=== PATIENT | male | born 1945 | race Caucasian/White ===

== ENCOUNTER 2017-07-09 15:22 | Observation (INO) | payer OTHER ==
[~2017-07-09] VITALS: Ht 193 cm; Wt 108.2 kg
[2017-07-09 15:30] VITALS: BP 138/87; PULSE 132; RESP 20; TEMP 98.3; O2SAT 100
[2017-07-09] MEDS ORDERED: NITROGLYCERIN 2% OINT 1 GM PACKET TOP ONE (15:30)
[2017-07-09] MEDS ORDERED: MORPHINE SULFATE 4 MG/ML INJ IV PUSH ONE (15:30)
--- NOTE | 2017-07-09 15:42 | PD ---
HPI Chief Complaint: chest pain, SOB Time Seen by Provider: 15:30 Travel History International Travel<30 days: No Contact w/Intl Traveler<30days: No History of Present Illness HPI 72-year-old male presents emergency department from [place] [facility] for evaluation of shortness of breath, chest pain, cough, congestion that started approximately 3 days ago. EVAC states that they gave him 324 of aspirin, one of nitro and his chest pain shortness of breath decreased. Says they found intrafibrillation with RVR which apparently is new onset for him. Says his CO2 is been in the 20-30 range. Patient denies any cardiac history. States that he does have a history of hyperlipidemia, COPD, schizophrenia. Says he used to smoke 3 packs of cigarettes per day but quit 6 years ago. Says she drinks about 4 alcoholic drinks per week. In addition, states he takes Valium daily. Says he takes 25 mg per day. He is concerned that he may go through Valium withdrawal. He says he took 10 mg a day. PFSH Past Medical History Arthritis: Yes Autoimmune Disease: No Blood Disorders: No Anxiety: Yes Depression: Yes Cancer: Yes (SKIN) Cardiovascular Problems: No Genitourinary: No Musculoskeletal: Yes Neurologic: No Psychiatric: Yes (SCHIZOPHRENIA) Respiratory: No Social History Alcohol Use: Yes (4-6 DAILY) Tobacco Use: Yes (2 PACKS DAILY) [facility]: [facility] Allergies-Medications (Allergen,Severity, Reaction): Coded Allergies: Sulfa (Sulfonamide Antibiotics) (Verified Allergy, Severe, Rash, 07/09/17) Physical Exam Narrative GENERAL: Well-developed, well-nourished, on BiPAP in respiratory distress SKIN: Focused skin assessment warm/dry. HEAD: Atraumatic. Normocephalic. EYES: Pupils equal and round. No scleral icterus. No injection or drainage. ENT: No nasal bleeding or discharge. Mucous membranes pink and moist. NECK: Trachea midline. JVD present CARDIOVASCULAR: Irregularly irregular, tachycardic RESPIRATORY: Accessory muscle use present, bilateral diffuse Rales GASTROINTESTINAL: Abdomen soft, non-tender, nondistended. Hepatic and splenic margins not palpable. No CVA tenderness MUSCULOSKELETAL: No obvious deformities. No clubbing. No cyanosis. No edema. Homans sign negative bilaterally NEUROLOGICAL: Awake and alert. No obvious cranial nerve deficits. Motor grossly within normal limits. Normal speech. PSYCHIATRIC: Appropriate mood and affect; insight and judgment normal. Data Data Last Documented VS Vital Signs Date Time Temp Pulse Resp B/P (MAP) Pulse Ox O2 Delivery O2 Flow Rate FiO2 07/09/17 18:15 84 18 164/76 (105) 97 Nasal Cannula 3.00 07/09/17 15:55 98.3 Orders Orders Electrocardiogram (07/09/17 15:29) Basic Metabolic Panel (Bmp) (07/09/17 15:29) Complete Blood Count With Diff (07/09/17 15:29) Magnesium (Mg) (07/09/17 15:29) Prothrombin Time / Inr (Pt) (07/09/17 15:29) Act Partial Throm Time (Ptt) (07/09/17 15:29) Troponin I (07/09/17 15:29) Chest, Single Ap (07/09/17 15:29) Ecg Monitoring (07/09/17 15:29) Iv Access Insert/Monitor (07/09/17 15:29) Oximetry (07/09/17 15:29) Oxygen Administration (07/09/17 15:29) Morphine Inj (Morphine Inj) (07/09/17 15:30) Nitroglycerin 2% Oint (Nitroglycerin 2% (07/09/17 15:30) Sodium Chloride 0.9% Flush (Ns Flush) (07/09/17 15:30) B-Type Natriuretic Peptide (07/09/17 15:34) Resp Bipap / Cpap Non Invas Vt (07/09/17 ) Diltiazem Inj (Cardizem Inj) (07/09/17 16:00) Admit Order (Ed Use Only) (07/09/17 18:24) Labs Laboratory Tests Test 07/09/17 15:30 07/09/17 16:03 White Blood Count 11.0 TH/MM3 Red Blood Count 4.71 MIL/MM3 Hemoglobin 15.0 GM/DL Hematocrit 43.3 % Mean Corpuscular Volume 92.1 FL Mean Corpuscular Hemoglobin 31.9 PG Mean Corpuscular Hemoglobin Concent 34.6 % Red Cell Distribution Width 13.9 % Platelet Count 151 TH/MM3 Mean Platelet Volume 9.3 FL Neutrophils (%) (Auto) 71.5 % Lymphocytes (%) (Auto) 14.2 % Monocytes (%) (Auto) 13.8 % Eosinophils (%) (Auto) 0.0 % Basophils (%) (Auto) 0.5 % Neutrophils # (Auto) 7.9 TH/MM3 Lymphocytes # (Auto) 1.6 TH/MM3 Monocytes # (Auto) 1.5 TH/MM3 Eosinophils # (Auto) 0.0 TH/MM3 Basophils # (Auto) 0.1 TH/MM3 CBC Comment DIFF FINAL Differential Comment Prothrombin Time 9.5 SEC Prothromb Time International Ratio 0.9 RATIO Activated Partial Thromboplast Time 24.8 SEC D-Dimer Quantitative (PE/DVT) 1.01 MG/L FEU Blood Urea Nitrogen 23 MG/DL Creatinine 1.07 MG/DL Random Glucose 117 MG/DL Calcium Level 8.8 MG/DL Magnesium Level 2.2 MG/DL Sodium Level 134 MEQ/L Potassium Level 3.9 MEQ/L Chloride Level 98 MEQ/L Carbon Dioxide Level 27.5 MEQ/L Anion Gap 9 MEQ/L Estimat Glomerular Filtration Rate 68 ML/MIN Troponin I 0.02 NG/ML B-Type Natriuretic Peptide 51 PG/ML MDM Medical Decision Making Medical Screen Exam Complete: Yes Emergency Medical Condition: Yes Differential Diagnosis CHF, NSTEMI, A fib with RVR Narrative Course 72-year-old male with history of hyperlipidemia, COPD [facility]. Patient was given aspirin and nitro, also placed on BiPAP by [facility] prior to arrival which significantly reduced his symptoms. Patient complains of minimal chest discomfort at this point. Says that his chest discomfort is located midsternal with some radiation into the left shoulder. Pt was transferred to his hospital bed on BiPAP. Initial vital signs blood pressure 164/76, heart rate 132-172, 97% on BiPAP (50 % O2) Labs and imaging studies ordered. EKG shows atrial fibrillation with RVR at a rate of 150 which apparently is a new onset for him. His exam findings demonstrate a 72-year-old male in respiratory distress, diffuse Rales, irregularly irregular rhythm and tachycardic. Morphine and nitro administered as this appears to be a congestive heart failure exacerbation. Cardizem 0.25 mg/kg of ordered as his heart rate is significantly variable between 120 and 153 bpm. After speaking with the pharmacist, because of the dosing of the vials, ordered 25 mg IV push. This decreased his HR to 95-100. Pt also felt better. Labs are stable. Cardiac enzymes negative. Mild hyponatremia at 134, BNP 51. CBC unremarkable. Chest x-ray without acute process. Patient states he is willing to have life support for a brief amount of time although his paperwork (advanced directive) says otherwise. Patient states that he "did not know what he was signing". Says his intent was to donate his body to medical science which is the reason why he is signed what he did at the time. BiPAP was weaned and he was placed on 2 L/min O2 and tolerated well. Patient is admitted to Dr. Jain for new onset atrial fibrillation with RVR. Diagnosis Primary Impression: Atrial fibrillation with RVR Admitting Information Admitting Physician Requests: Admit Condition: Stable Florida Mckeon Jul 09, 2017 15:42
[2017-07-09] MEDS ORDERED: DILTIAZEM HCL 25 MG/5 ML VIAL IV PUSH ONE (15:45)
[2017-07-09 15:54] VITALS: O2SAT 96
[2017-07-09 15:55] VITALS: BP 138/87; PULSE 132; RESP 20; TEMP 98.3; O2SAT 100
[2017-07-09] MEDS ORDERED: DILTIAZEM HCL 50 MG/10 ML VIAL IV PUSH ONE (16:00)
[2017-07-09] MEDS: SODIUM CHLORIDE 0.9% FLUSH 10 ML FLUSH IVF PRN ×2 (16:03→16:14)
--- NOTE | 2017-07-09 16:03 | PD ---
Physical Exam Date Seen by Provider: Jul 09, 2017 Narrative This patient presents to us from the [facility] by [facility] on BiPAP for new onset atrial fibrillation, chest pain and shortness of breath. He has been treated prior to arrival here with aspirin and nitroglycerin with some relief of his chest pain. His dyspnea has been relieved by the BiPAP. He has no previous history of atrial fibrillation. Data Data Last Documented VS Vital Signs Date Time Temp Pulse Resp B/P (MAP) Pulse Ox O2 Delivery O2 Flow Rate FiO2 07/09/17 18:15 84 18 164/76 (105) 97 Nasal Cannula 3.00 07/09/17 15:55 98.3 07/09/17 15:54 50 Orders Orders Electrocardiogram (07/09/17 15:29) Basic Metabolic Panel (Bmp) (07/09/17 15:29) Complete Blood Count With Diff (07/09/17 15:29) Magnesium (Mg) (07/09/17 15:29) Prothrombin Time / Inr (Pt) (07/09/17 15:29) Act Partial Throm Time (Ptt) (07/09/17 15:29) Troponin I (07/09/17 15:29) Chest, Single Ap (07/09/17 15:29) Ecg Monitoring (07/09/17 15:29) Iv Access Insert/Monitor (07/09/17 15:29) Oximetry (07/09/17 15:29) Oxygen Administration (07/09/17 15:29) Morphine Inj (Morphine Inj) (07/09/17 15:30) Nitroglycerin 2% Oint (Nitroglycerin 2% (07/09/17 15:30) Sodium Chloride 0.9% Flush (Ns Flush) (07/09/17 15:30) B-Type Natriuretic Peptide (07/09/17 15:34) Resp Bipap / Cpap Non Invas Vt (07/09/17 ) Diltiazem Inj (Cardizem Inj) (07/09/17 16:00) Admit Order (Ed Use Only) (07/09/17 18:24) Labs Laboratory Tests Test 07/09/17 15:30 07/09/17 16:03 White Blood Count 11.0 TH/MM3 Red Blood Count 4.71 MIL/MM3 Hemoglobin 15.0 GM/DL Hematocrit 43.3 % Mean Corpuscular Volume 92.1 FL Mean Corpuscular Hemoglobin 31.9 PG Mean Corpuscular Hemoglobin Concent 34.6 % Red Cell Distribution Width 13.9 % Platelet Count 151 TH/MM3 Mean Platelet Volume 9.3 FL Neutrophils (%) (Auto) 71.5 % Lymphocytes (%) (Auto) 14.2 % Monocytes (%) (Auto) 13.8 % Eosinophils (%) (Auto) 0.0 % Basophils (%) (Auto) 0.5 % Neutrophils # (Auto) 7.9 TH/MM3 Lymphocytes # (Auto) 1.6 TH/MM3 Monocytes # (Auto) 1.5 TH/MM3 Eosinophils # (Auto) 0.0 TH/MM3 Basophils # (Auto) 0.1 TH/MM3 CBC Comment DIFF FINAL Differential Comment Prothrombin Time 9.5 SEC Prothromb Time International Ratio 0.9 RATIO Activated Partial Thromboplast Time 24.8 SEC D-Dimer Quantitative (PE/DVT) 1.01 MG/L FEU Blood Urea Nitrogen 23 MG/DL Creatinine 1.07 MG/DL Random Glucose 117 MG/DL Calcium Level 8.8 MG/DL Magnesium Level 2.2 MG/DL Sodium Level 134 MEQ/L Potassium Level 3.9 MEQ/L Chloride Level 98 MEQ/L Carbon Dioxide Level 27.5 MEQ/L Anion Gap 9 MEQ/L Estimat Glomerular Filtration Rate 68 ML/MIN Troponin I 0.02 NG/ML B-Type Natriuretic Peptide 51 PG/ML MDM Supervised Visit with [facility]: Yes Narrative Course I, Dr. Montoya, have reviewed the advance practice practitioner's documentation and am in agreement, met with the patient face to face, made the diagnosis, and the medical decision making was done by me. *My assessment and Findings: Patient is awake and alert and fully oriented. He has a heart rate of about 140. Please see Florida Mckeon PA-C's note for further details, lab and radiology results, final diagnosis and disposition. Critical Care Narrative Aggregate critical care time was 30 minutes. Time to perform other separately billable procedures was not included in the critical care time. My time did not include minutes spent treating any other patients simultaneously or on activities that did not directly contribute to the patient's treatment. The services I provided to this patient were to treat and/or prevent clinically significant deterioration due to new-onset atrial fibrillation with rapid ventricular response. I provided critical care services requiring my management, as noted below: Chart data review, documentation time, medication orders and management, vital sign assessments/reviewing monitor data, ordering and reviewing lab tests, ordering and interpreting/reviewing x-rays and diagnostic studies, care of the patient and discussion of the patient with the admitting physicians Diagnosis Primary Impression: Atrial fibrillation with RVR Condition: Stable Rianna Montoya MD Jul 09, 2017 16:03
--- NOTE | 2017-07-09 16:11 | RADRPT ---
EXAM DATE/TIME: 07/09/2017 15:43 [facility] COMPARISON: No previous studies available for comparison. INDICATIONS : Shortness of breath. MEDICAL HISTORY : Skin cancer. Schizophrenia. SURGICAL HISTORY : None. ENCOUNTER: Initial ACUITY: 1 day PAIN SCORE: 0/10 LOCATION: Bilateral chest FINDINGS: 2 AP erect portable views of the chest demonstrates the lungs to be symmetrically aerated without nata dence of mass, infiltrate or effusion. The cardiomediastinal contours are unremarkable. Osseous str uctures are intact. CONCLUSION: No acute disease. There is no evidence of pneumonia or pulmonary edema. Maik Cheung MD on July 09, 2017 at 16:08 Board Certified Radiologist. This report was verified electronically.
[2017-07-09 16:15] LABS: AUTOMATED NEUTROPHIL # 7.9 TH/MM3 (1.8-7.7); BASOPHIL # 0.1 TH/MM3 (0-0.2); BASOPHIL % 0.5 % (0.0-2.0); HEMATOCRIT 43.3 % (39.0-51.0); LYMPH % 14.2 % (9.0-44.0); LYMPHOCYTE # 1.6 TH/MM3 (1.0-4.8); MEAN CELL VOLUME 92.1 FL (80.0-100.0); MEAN CORPUSCULAR HEMOGLOBIN 31.9 PG (27.0-34.0); MEAN CORPUSCULAR HGB CONC 34.6 % (32.0-36.0); MEAN PLATELET VOLUME 9.3 FL (7.0-11.0); MONO % 13.8 % (0.0-8.0); MONOCYTE # 1.5 TH/MM3 (0-0.9); NEUT % 71.5 % (16.0-70.0); PLATELET COUNT 151 TH/MM3 (150-450); RED BLOOD COUNT 4.71 MIL/MM3 (4.50-5.90); RED CELL DISTRIBUTION WIDTH 13.9 % (11.6-17.2)
[2017-07-09 16:35] VITALS: BP 134/84; PULSE 97; RESP 16
[2017-07-09 16:43] LABS: INTERNATIONAL NORMALIZED RATIO 0.9 RATIO; PROTHROMBIN TIME - PATIENT 9.5 SEC (9.8-11.6)
[2017-07-09 16:45] LABS: TROPONIN I 0.02 NG/ML (0.02-0.05)
[2017-07-09 16:51] LABS: BICARBONATE 27.5 MEQ/L (21.0-32.0); CALCIUM 8.8 MG/DL (8.5-10.1); CREATININE 1.07 MG/DL (0.60-1.30); MAGNESIUM 2.2 MG/DL (1.5-2.5)
[2017-07-09 18:15] VITALS: BP 164/76; PULSE 84; RESP 18; O2SAT 97
[2017-07-09] MEDS ORDERED: NALOXONE HCL 0.4 MG/ML AMP IV PUSH PRN (18:30)
[2017-07-09] MEDS ORDERED: SODIUM CHLORIDE 0.9% FLUSH 10 ML FLUSH IV FLUSH PRN (18:30)
[2017-07-09] MEDS: SODIUM CHLORIDE 0.9% FLUSH 10 ML FLUSH IV FLUSH SCH (21:02)
--- NOTE | 2017-07-09 21:02 | HHI.HP ---
[facility] Admission Diagnosis A fib with RVR, Chest pain, SOB Diagnoses: Travel History International Travel<30 Days: No Contact w/Intl Traveler <30 Da: No Traveled to Known Affected Are: No History of Present Illness History from patient, ER PA communication, and review of medical records. Patient reported that he was having sciatica symptoms about 2 weekends ago. He states that on and Sunday, about 4 days ago, he started having "pulmonary issues". When asked to clarify this, he reports that he was having coughing, severe congestion, with some chills and sweats. He denies fever there. He reports that his sputum is whitish thick color. He reports history of COPD. However he is not on inhalers at home yet. Not on home oxygen. He reports that his shortness of breath was not improving and therefore called the [place] and had an appointment with them today. At the [place] clinic, he did have a chest x-ray done. He was then sent to the hospital via ambulance because of his respiratory distress. He arrived to the emergency room on CPAP by EMS. Patient himself denies any nausea/vomiting. He reports of some abdominal pain but states that this is resolved now. He noted the abdominal pain only when he was taking ibuprofen. Denies any urinary symptoms except for frequent urination. Denies diarrhea. Denies any nausea, no vomiting Denies blood in his stool or urine. When asked about the chest pains, patient stated it was more of his pectoral muscle pain on the left side and also in between his shoulder blades. He however states that the head chest pain is more of a heaviness as well. Patient denies any recent travels. Reports he is mostly sitting at home though. Because of his disability. Reports that his disability is secondary to mental health though. Patient during my interview is noted to be with obvious upper airway congestion with heavy audible cough and congestion Review of Systems Except as stated in HPI: all other systems reviewed are Neg Past Family Social History Past Medical History had nuclear stress test prior- about 6-7 yrs ago, wnl copd- not on home oxygen, not on inhalors basal cell carcinoma of the nose- s/p resections psychiatry issues- made him to be under disability- he did not want to discuss Past Surgical History basal cell skin removal tonsillectomy adenoidectomy Allergies: Coded Allergies: Sulfa (Sulfonamide Antibiotics) (Verified Allergy, Severe, Rash, 07/09/17) Family History mom- breast cancer dad- lung cancer daughter- in feb stage III cancer Social History used to smoke, quit 7 yrs ago etoh socially - drinks about 4 low beer a week no drugs Physical Exam Vital Signs Vital Signs Date Time Temp Pulse Resp B/P (MAP) Pulse Ox O2 Delivery O2 Flow Rate FiO2 07/09/17 18:15 84 18 164/76 (105) 97 Nasal Cannula 3.00 07/09/17 16:35 97 16 134/84 (101) CPAP 07/09/17 15:55 100 CPAP 07/09/17 15:55 98.3 132 20 138/87 (104) 100 CPAP 07/09/17 15:55 130 20 100 CPAP 07/09/17 15:30 98.3 132 20 138/87 (104) 100 Physical Exam GENERAL: This is a well-nourished, well-developed patient, i not in acute distress. However does have audible cough and congestion. SKIN: No rashes, ecchymoses or lesions. Cool and dry. HEAD: Atraumatic. Normocephalic. No temporal or scalp tenderness. EYES: No scleral icterus. No injection or drainage. ENT: Nose without bleeding, purulent drainage or septal hematoma. Airway patent. NECK: Trachea midline. No JVD . Supple, nontender, no meningeal signs. CARDIOVASCULAR: Regular rate and rhythm without murmurs, gallops, or rubs. RESPIRATORY: Bilateral inspiratory and expiratory wheezing. All throughout lungs. GASTROINTESTINAL: Abdomen soft, non-tender, nondistended.. No guarding. MUSCULOSKELETAL: Extremities without clubbing, cyanosis, or edema. . No calf tenderness. NEUROLOGICAL: Awake and alert. Motor and sensory grossly within normal limits. Normal speech. Laboratory Laboratory Tests Test 07/09/17 15:30 07/09/17 16:03 White Blood Count 11.0 Red Blood Count 4.71 Hemoglobin 15.0 Hematocrit 43.3 Mean Corpuscular Volume 92.1 Mean Corpuscular Hemoglobin 31.9 Mean Corpuscular Hemoglobin Concent 34.6 Red Cell Distribution Width 13.9 Platelet Count 151 Mean Platelet Volume 9.3 Neutrophils (%) (Auto) 71.5 Lymphocytes (%) (Auto) 14.2 Monocytes (%) (Auto) 13.8 Eosinophils (%) (Auto) 0.0 Basophils (%) (Auto) 0.5 Neutrophils # (Auto) 7.9 Lymphocytes # (Auto) 1.6 Monocytes # (Auto) 1.5 Eosinophils # (Auto) 0.0 Basophils # (Auto) 0.1 CBC Comment DIFF FINAL Differential Comment Prothrombin Time 9.5 Prothromb Time International Ratio 0.9 Activated Partial Thromboplast Time 24.8 D-Dimer Quantitative (PE/DVT) 1.01 Blood Urea Nitrogen 23 Creatinine 1.07 Random Glucose 117 Calcium Level 8.8 Magnesium Level 2.2 Sodium Level 134 Potassium Level 3.9 Chloride Level 98 Carbon Dioxide Level 27.5 Anion Gap 9 Estimat Glomerular Filtration Rate 68 Troponin I 0.02 B-Type Natriuretic Peptide 51 Result Diagram: 07/09/17 1530 07/09/17 1530 Caprini VTE Risk Assessment Caprini VTE Risk Assessment: Mod/High Risk (score >= 2) Caprini Risk Assessment Model Point Value = 1 Point Value = 2 Point Value = 3 Point Value = 5 Age 41-60 Minor surgery BMI > 25 kg/m2 Swollen legs Varicose veins or History of unexplained or recurrent spontaneous Oral contraceptives or hormone replacement Sepsis (< 1 month) Serious lung disease, including pneumonia (< 1 month) Abnormal pulmonary function Acute myocardial infarction Congestive heart failure (< 1 month) History of inflammatory bowel disease Medical patient at bed rest Age 61-74 Arthroscopic surgery Major open surgery (> 45 min) Laparoscopic surgery (> 45 min) Malignancy Confined to bed (> 72 hours) Immobilizing plaster cast Central venous access Age >= 75 History of VTE Family history of VTE Factor V Leiden Prothrombin [id number] Lupus anticoagulant Anticardiolipin antibodies Elevated serum homocysteine Heparin-induced thrombocytopenia Other congenital or acquired thrombophilia Stroke (< 1 month) Elective arthroplasty Hip, pelvis, or leg fracture Acute spinal cord injury (< 1 month) Prophylaxis Regimen Total Risk Factor Score Risk Level Prophylaxis Regimen 0-1 Low Early ambulation 2 Moderate Order ONE of the following: *Sequential Compression Device (SCD) *Heparin 5000 units SQ BID 3-4 Higher Order ONE of the following medications: *Heparin 5000 units SQ TID *Enoxaparin/Lovenox 40 mg SQ daily (WT < 150 kg, CrCl > 30 mL/min) *Enoxaparin/Lovenox 30 mg SQ daily (WT < 150 kg, CrCl > 10-29 mL/min) *Enoxaparin/Lovenox 30 mg SQ BID (WT < 150 kg, CrCl > 30 mL/min) AND/OR *Sequential Compression Device (SCD) 5 or more Highest Order ONE of the following medications: *Heparin 5000 units SQ TID (Preferred with Epidurals) *Enoxaparin/Lovenox 40 mg SQ daily (WT < 150 kg, CrCl > 30 mL/min) *Enoxaparin/Lovenox 30 mg SQ daily (WT < 150 kg, CrCl > 10-29 mL/min) *Enoxaparin/Lovenox 30 mg SQ BID (WT < 150 kg, CrCl > 30 mL/min) AND *Sequential Compression Device (SCD) Assessment and Plan Assessment and Plan Impression: Respiratory distress Suspect underlying early pneumonia Rule out pulmonary embolism given patient's limited mobility. Chest pain.. Rule out ACS. Urinary frequency. Rule out underlying UTI History of COPD History of basal cell carcinoma of the nose Plan: Nebulizers scheduled and as needed. Check d-dimer. If d-dimer is elevated, will do CT pulmonary angiogram. Serial cardiac enzymes and EKGs. Chest x-ray personally reviewed. No evidence of acute pulmonary edema/ infiltrate. Does have hyperinflated lungs consistent with COPD. Question whether there is bronchiectasis as well. We will send UA urine culture due to urinary frequency. Start patient on levofloxacin 750 mg p.o. daily to cover for both pneumonia/UTI. DVT prophylaxis on Lovenox. GI prophylaxis on pantoprazole. Discussed Condition With Patient, ER PA, nursing staff Radha Jain MD Jul 09, 2017 21:02
[2017-07-09] MEDS ORDERED: IOHEXOL 350 MG/ML 10 ML VIAL (for RAD DIAG) IVCONTRAST ONE (21:19)
[2017-07-09] MEDS ORDERED: LEVOFLOXACIN 750 MG TAB PO ONE (21:30)
--- NOTE | 2017-07-09 21:38 | RADRPT ---
EXAM DATE/TIME: 07/09/2017 21:16 [facility] COMPARISON: No previous studies available for comparison. INDICATIONS : Shortness of breath past 3 days. IV CONTRAST: 70 cc Omnipaque 350 (iohexol) IV RADIATION DOSE: 18.10 CTDIvol (mGy) MEDICAL HISTORY : None SURGICAL HISTORY : None. ENCOUNTER: Initial ACUITY: 3 days PAIN SCALE: 0/10 LOCATION: Bilateral chest TECHNIQUE: Volumetric scanning of the chest was performed using a pulmonary embolism protocol MIP images were re constructed. Using automated exposure control and adjustment of the mA and/or kV according to patien t size, radiation dose was kept as low as reasonably achievable to obtain optimal diagnostic quality images. DICOM format image data is available electronically for review and comparison. Follow-up recommendations for detected pulmonary nodules are based at a minimum on nodule size and pa tient risk factors according to Fleischner Society Guidelines. FINDINGS: No filling defects identified to suggest pulmonary embolus. There is fairly extensive peribronchial t hickening in the lungs without consolidation. No effusion. No adenopathy. No acute findings in the up per abdomen. CONCLUSION: 1. Extensive peribronchial thickening in the lungs especially in the upper lobes. Negative for pulmon wisam embolus. Juan Guerrero MD on July 09, 2017 at 21:34 Board Certified Radiologist. This report was verified electronically.
[2017-07-09] MEDS: RESP: ALBUTEROL 2.5 MG/IPRATROPIUM 0.5 MG NEB (SCH) NEB (21:56)
[2017-07-09 22:26] VITALS: BP 129/80; PULSE 109; RESP 16; TEMP 98.5; O2SAT 97
[2017-07-09 22:48] LABS: TROPONIN I LESS THAN 0.02 NG/ML (0.02-0.05)
[2017-07-10] VITALS (15 sets, daily range): BP systolic 120–158; BP diastolic 56–92; PULSE 81–105; RESP 14–18; TEMP 97.6–98.8; O2SAT 94–97
[2017-07-10] MEDS: methylPREDNISolone SOD SUCC 40 MG/1 ML VIAL IV PUSH SCH ×4 (00:14→21:59)
[2017-07-10] MEDS: RESP: ALBUTEROL 2.5 MG/IPRATROPIUM 0.5 MG NEB (PRN) NEB ×2 (00:17→12:47)
[2017-07-10] MEDS: RESP: ALBUTEROL 2.5 MG/IPRATROPIUM 0.5 MG NEB (SCH) NEB ×4 (03:23→20:26)
[2017-07-10 04:57] LABS: AUTOMATED NEUTROPHIL # 4.2 TH/MM3 (1.8-7.7); BASOPHIL % 0.2 % (0.0-2.0); HEMATOCRIT 40.4 % (39.0-51.0); HEMOGLOBIN 13.9 GM/DL (13.0-17.0); LYMPH % 7.8 % (9.0-44.0); LYMPHOCYTE # 0.4 TH/MM3 (1.0-4.8); MEAN CELL VOLUME 91.9 FL (80.0-100.0); MEAN CORPUSCULAR HEMOGLOBIN 31.6 PG (27.0-34.0); MEAN CORPUSCULAR HGB CONC 34.4 % (32.0-36.0); MEAN PLATELET VOLUME 8.9 FL (7.0-11.0); MONO % 4.6 % (0.0-8.0); MONOCYTE # 0.2 TH/MM3 (0-0.9); NEUT % 87.4 % (16.0-70.0); PLATELET COUNT 134 TH/MM3 (150-450); RED CELL DISTRIBUTION WIDTH 13.4 % (11.6-17.2); WHITE BLOOD COUNT 4.8 TH/MM3 (4.0-11.0)
[2017-07-10 05:25] LABS: BICARBONATE 28.1 MEQ/L (21.0-32.0); BLOOD UREA NITROGEN 23 MG/DL (7-18); CALCIUM 8.5 MG/DL (8.5-10.1); CHLORIDE 99 MEQ/L (98-107); CREATININE 0.85 MG/DL (0.60-1.30); GLOMERULAR FILTRATION RATE 89 ML/MIN (>89); GLUCOSE,RANDOM 139 MG/DL (74-106); SODIUM (NA) 137 MEQ/L (136-145)
[2017-07-10 05:29] LABS: TROPONIN I LESS THAN 0.02 NG/ML (0.02-0.05)
[2017-07-10] MEDS: LEVOFLOXACIN 750 MG TAB PO SCH (08:27)
[2017-07-10] MEDS: PANTOPRAZOLE SOD 40 MG DELAYED RELEASE TAB PO SCH (08:27)
[2017-07-10] MEDS: ENOXAPARIN SODIUM 40 MG/0.4 ML SYRINGE SQ SCH (08:27)
[2017-07-10] MEDS: SODIUM CHLORIDE 0.9% FLUSH 10 ML FLUSH IV FLUSH SCH ×2 (08:34→21:00)
--- NOTE | 2017-07-10 10:33 | HHI.PR ---
Subjective Remarks Patient says he is feeling all right this morning, still shortness of breath. However left-sided chest pressure started 30 minutes prior to my arrival. Denies any nausea vomiting. Objective Vital Signs Date Time Temp Pulse Resp B/P (MAP) Pulse Ox O2 Delivery O2 Flow Rate FiO2 07/10/17 07:29 97.6 92 18 158/88 (111) 96 07/10/17 04:17 87 07/10/17 04:01 98.8 98 18 125/61 (82) 96 07/10/17 01:16 104 07/10/17 00:54 98.1 92 17 120/88 (99) 96 07/10/17 00:15 96 Nasal Cannula 2.00 07/09/17 22:26 98.5 109 16 129/80 (96) 97 07/09/17 18:15 84 18 164/76 (105) 97 Nasal Cannula 3.00 07/09/17 18:15 97 Nasal Cannula 3.00 07/09/17 16:35 97 16 134/84 (101) CPAP 07/09/17 15:55 100 CPAP 07/09/17 15:55 98.3 132 20 138/87 (104) 100 CPAP 07/09/17 15:55 130 20 100 CPAP 07/09/17 15:54 96 50 07/09/17 15:30 98.3 132 20 138/87 (104) 100 Result Diagram: 07/10/17 0443 07/10/17 0443 Objective Remarks GENERAL: Patient sitting up in bed. Appears uncomfortable. Alert and oriented 3.. SKIN: Warm and dry. HEAD: Normocephalic. EYES: No scleral icterus. No injection or drainage. NECK: Supple, trachea midline. No JVD. CARDIOVASCULAR: Irregularly irregular rhythm without murmurs, gallops, or rubs. RESPIRATORY: Breath sounds equal bilaterally. No accessory muscle use. GASTROINTESTINAL: Abdomen soft, non-tender, nondistended. MUSCULOSKELETAL: No cyanosis, or edema. BACK: Nontender without obvious deformity. No CVA tenderness. A/P Assessment and Plan //Respiratory distress //Bronchitis //COPD exacerbation CT pulmonary angiogram without evidence for PE, however shows peribronchial thickening. Continue Levaquin, nebs, steroids //New atrial fibrillation //Chest pain.. Rule out ACS. -Could be secondary to coughing. -Troponin 0 0.02 on admission, less than 0.[address] elevation on EKG. = Patient reporting chest pain restarted this morning. Cardiology consult pending. Recheck EKG. //Urinary frequency. Rule out underlying UTI. Urinalysis ordered and pending. //History of basal cell carcinoma of the nose Discharge Planning Pending improvement. Pending cardiology clearance. Luis Perdomo MD Jul 10, 2017 10:33
[2017-07-10] MEDS: DILTIAZEM-CD 120 MG CAP ER PO SCH (10:38)
[2017-07-10] MEDS ORDERED: DIAZ10 PO (11:00)
[2017-07-10 12:30] LABS: GLUCOSE,URINE NEG (NEG); URINE COLOR YELLOW (YELLW/STRAW)
[2017-07-10 12:31] LABS: BILIRUBIN, URINE NEG (NEG); BLOOD, URINE SMALL (NEG); HYALINE CAST, URINE 1 /lpf (RARE); KETONE, URINE TRACE mg/dL (NEG); NITRITE,URINE NEG (NEG); SQUAMOUS EPITHELIAL CELL URINE <1 /hpf (0-5); URINE LEUKOCYTE ESTERASE NEG (NEG)
--- NOTE | 2017-07-10 14:30 | EKG ---
Date Performed: 07/09/2017 Time Performed: 15:32:51 PTAGE: 72 years EKG: ATRIAL FIBRILLATION WITH RAPID VENTRICULAR RESPONSE ABNORMAL RHYTHM ECG Compared to PREVIOUS TRACING atrial fibrillation is new Clinical correlation is recommended PREVIOUS TRACIN02/15/05 DOCTOR: Mak Kamara Interpretating Date/Time 07/10/2017 14:29:40
--- NOTE | 2017-07-10 15:47 | EKG ---
Date Performed: 07/09/2017 Time Performed: 22:08:15 PTAGE: 72 years EKG: ATRIAL FIBRILLATION WITH RAPID VENTRICULAR RESPONSE ABNORMAL RHYTHM ECG Since the PREVIOUS TRACING , no significant change noted PREVIOUS TRACIN07/09/2017@1532 DOCTOR: Mak Kamara Interpretating Date/Time 07/10/2017 15:43:23
[2017-07-10] MEDS ORDERED: atorvastatin (18:21)
[2017-07-10] MEDS ORDERED: zinc (18:24)
[2017-07-10] MEDS ORDERED: DIAZEPAM 5 MG TAB PO ONE (18:30)
[2017-07-11] VITALS (12 sets, daily range): BP systolic 155–181; BP diastolic 82–96; PULSE 77–102; RESP 18–20; TEMP 97.3–97.8; O2SAT 91–94
--- NOTE | 2017-07-11 00:11 | MB ---
cc: Marcos Hanna MD DATE: 07/10/2017 HISTORY OF PRESENT ILLNESS: Gopi is a 72-year-old gentleman who presents with a chief complaint of shortness of breath, also notes a left-sided chest pain, complains of cough and congestion. [facility] He is currently eating lunch, in no acute distress. He otherwise denies any fevers or chills, GI or bleeding, PND or orthopnea. He was found to be in atrial fibrillation with rapid ventricular response at the [place]. PAST MEDICAL HISTORY: Includes hyperlipidemia, COPD, schizophrenia, tobacco use. Past medical history also includes arthritis and skin cancer. SOCIAL HISTORY: Alcohol, he drinks 4-6 drinks a day, and per the ER note, he smokes 2 packs of cigarettes a day and smokes marijuana. ALLERGIES: SULFA. MEDICATIONS: 1. Methylprednisolone 40 mg IV every 8 hours. 2. Cardizem 120 daily. 3. Levofloxacin 750 daily. 4. Pantoprazole 40 daily. 5. Lovenox 40 subQ every 24 hours. 6. Albuterol. PHYSICAL EXAMINATION: VITAL SIGNS: Pulse 102, blood pressure 154/94, respiratory rate 14, sats 94% on 3 liters. DIAGNOSTIC STUDIES: EKG: Atrial fibrillation with a rate of 150 beats per minute. CTA of the chest: Extensive peribronchial thickening in the lungs, especially in the upper lobes; negative for pulmonary embolus. Chest x-ray: No acute disease. LABORATORY DATA: White count 4.8, hemoglobin 13.9, hematocrit 40.4, platelet count 134. Sodium 134, potassium 3.9, chloride 98, BUN 23, creatinine 1.07. Troponin less than 0.02 x3. BNP is 51. INR is 1.01. FINAL DIAGNOSES: 1. Atrial fibrillation with rapid ventricular response. 2. Unstable angina. 3. Tobacco use. 4. Marijuana use. 5. Alcohol abuse. 6. Hyponatremia. 7. Hyperglycemia. 8. Schizophrenia. DISCUSSION: Regarding his atrial fibrillation, he has a CHADS-VASc score of 2. Therefore, he should be on Coumadin or a novel oral anticoagulant agent to reduce his risk of stroke; however, the patient has schizophrenia, he is an alcohol abuser, and he would be a fall risk and also a risk of noncompliance, which may result in life-threatening bleeding. Therefore, I think it is reasonable to keep him on aspirin 81 mg daily. I have also recommended a heart catheterization to the patient, as he has a high pretest probability for significant coronary artery disease given his smoking history, age and gender. The patient declines. We will consider doing a nuclear myocardial perfusion study. Strongly recommend smoking cessation and alcohol abstinence and marijuana abstinence, and advised the patient to do this. Otherwise, recommend continued telemetry monitoring and up-titrate Cardizem p.r.n. to keep heart rate below 100. MD TOMÁS Isaacs/DONATO , 11:30 PM , 12:09 AM
[2017-07-11] MEDS: RESP: ALBUTEROL 2.5 MG/IPRATROPIUM 0.5 MG NEB (SCH) NEB ×4 (03:21→21:00)
[2017-07-11] MEDS: methylPREDNISolone SOD SUCC 40 MG/1 ML VIAL IV PUSH SCH ×3 (05:22→21:06)
[2017-07-11] MEDS: ENOXAPARIN SODIUM 40 MG/0.4 ML SYRINGE SQ SCH (08:56)
[2017-07-11] MEDS: DILTIAZEM-CD 120 MG CAP ER PO SCH (08:56)
[2017-07-11] MEDS: PANTOPRAZOLE SOD 40 MG DELAYED RELEASE TAB PO SCH (08:56)
[2017-07-11] MEDS: LEVOFLOXACIN 750 MG TAB PO SCH (08:56)
[2017-07-11] MEDS: SODIUM CHLORIDE 0.9% FLUSH 10 ML FLUSH IV FLUSH SCH ×2 (08:57→21:07)
[2017-07-11] MEDS ORDERED: ENALAPRILAT 1.25 MG/ML VIAL IV PUSH PRN (10:45)
--- NOTE | 2017-07-11 11:59 | ECHRPT ---
Indication: ATRIAL FIB/FLUTTER CONCLUSIONS Normal left ventricular size. Wall thickness is normal. Probably normal systolic function. Poor study with very limited windows BP: 143 / 74 HR: 97 Rhythm: Sinus Technical Quality:Fair FINDINGS LEFT VENTRICLE Normal left ventricular size. Wall thickness is normal. The left ventricular systolic function is normal with an estimated ejection fraction in the range of 60-65%. RIGHT VENTRICLE Normal right ventricular size and systolic function. Mauricio Espinoza MD, FACC (Electronically Signed) Final Date:11 July 2017 11:58
[2017-07-11] MEDS: DIAZEPAM 10 MG TAB PO PRN (12:49)
--- NOTE | 2017-07-11 14:41 | HHI.PR ---
Subjective Remarks Resting in bed comfortably breathing okay Blood pressure going above normal limits this morning 163/83 Afebrile Objective Vitals Vital Signs Date Time Temp Pulse Resp B/P (MAP) Pulse Ox O2 Delivery O2 Flow Rate FiO2 07/11/17 12:00 97.6 94 20 181/96 (124) 93 07/11/17 09:00 Nasal Cannula 3.00 07/11/17 08:00 97.5 86 20 176/86 (116) 91 07/11/17 04:00 Nasal Cannula 3.00 07/11/17 04:00 97.3 87 18 163/82 (109) 92 07/11/17 04:00 84 07/11/17 00:09 Nasal Cannula 3.00 07/11/17 00:04 97.8 102 18 168/91 (116) 94 07/11/17 00:00 96 07/10/17 23:00 92 07/10/17 22:24 Nasal Cannula 3.00 07/10/17 21:08 98.0 102 14 154/92 (112) 94 07/10/17 20:31 97 Nasal Cannula 3.00 07/10/17 20:15 Nasal Cannula 3.00 07/10/17 15:52 105 07/10/17 14:49 97.8 105 18 149/72 (97) 95 I/O 07/10/17 07/10/17 07/10/17 07/11/17 07/11/17 07/11/17 07:00 15:00 23:00 07:00 15:00 23:00 Intake Total 240 ml Balance 240 ml Intake Oral 240 ml # Voids 2 1 3 # Bowel Movements 0 Result Diagram: 07/10/17 0443 07/10/17 0443 A/P Assessment and Plan Respiratory distress COPD exacerbation acute bronchitis New onset A. fib with RVR Noncompliance Hypertension uncontrolled Mild rhabdo with CK 661 dropped to 523 Chest pain possibly due to A. fib rule out ACS Urinary frequency, UA showed proteinuria but no significant UTI finding History of basal cell carcinoma DVT prophylaxis Plan: Continue O2, DuoNeb, IV antibiotic Levaquin, EKG without changes, cardiac enzymes negative, CT chest no PE, peribronchial thickening, I will start lisinopril 10 mg p.o. daily twice daily, with low dose metoprolol 25 mg twice daily with holding parameters Discharge Planning Pending clinical improvement clearance by cardiology Narendra Cardenas MD Jul 11, 2017 14:41
--- NOTE | 2017-07-11 14:56 | PD.CARD.PN ---
Subjective Subjective Remarks c/o valiun w/d, grief reaction from of his daughter 1 month ago Objective Medications Current Medications Medications (Trade) Dose Ordered Sig/Joe Route Start Time Stop Time Status Last Admin (NS Flush) 2 ml UNSCH PRN IVF 07/09/17 15:30 07/09/17 16:14 (NS Flush) 2 ml UNSCH PRN IV FLUSH 07/09/17 18:30 (NS Flush) 2 ml BID IV FLUSH 07/09/17 21:00 07/11/17 08:57 (Narcan Inj) 0.4 mg UNSCH PRN IV PUSH 07/09/17 18:30 (Levaquin) 750 mg DAILY PO 07/10/17 09:00 07/11/17 08:56 (Duoneb Neb) 1 ampule Q6HR NEB NEB 07/09/17 22:00 07/11/17 10:32 (Duoneb Neb) 1 ampule Q2HR NEB PRN NEB 07/09/17 21:30 07/10/17 12:47 (Protonix) 40 mg DAILY PO 07/10/17 09:00 07/11/17 08:56 (Lovenox Inj) 40 mg Q24H SQ 07/10/17 09:00 07/11/17 08:56 (Cardizem Cd) 120 mg DAILY PO 07/10/17 10:00 07/11/17 08:56 (SoluMEDROL INJ) 40 mg Q8HR IV PUSH 07/10/17 14:00 07/11/17 12:49 (Vasotec Inj) 1.25 mg Q6H PRN IV PUSH 07/11/17 10:45 (Valium) 10 mg Q12H PRN PO 07/11/17 11:15 07/11/17 12:49 Vital Signs / I&O Vital Signs Date Time Temp Pulse Resp B/P (MAP) Pulse Ox O2 Delivery O2 Flow Rate FiO2 07/11/17 12:00 97.6 94 20 181/96 (124) 93 07/11/17 09:00 Nasal Cannula 3.00 07/11/17 08:00 97.5 86 20 176/86 (116) 91 07/11/17 04:00 Nasal Cannula 3.00 07/11/17 04:00 97.3 87 18 163/82 (109) 92 07/11/17 04:00 84 07/11/17 00:09 Nasal Cannula 3.00 07/11/17 00:04 97.8 102 18 168/91 (116) 94 07/11/17 00:00 96 07/10/17 23:00 92 07/10/17 22:24 Nasal Cannula 3.00 07/10/17 21:08 98.0 102 14 154/92 (112) 94 07/10/17 20:31 97 Nasal Cannula 3.00 07/10/17 20:15 Nasal Cannula 3.00 07/10/17 15:52 105 I/O 07/10/17 07/10/17 07/10/17 07/11/17 07/11/17 07/11/17 07:00 15:00 23:00 07:00 15:00 23:00 Intake Total 240 ml Balance 240 ml Intake Oral 240 ml # Voids 2 1 3 # Bowel Movements 0 Laboratory GENERAL: SKIN: Warm and dry. HEAD: Normocephalic. EYES: No scleral icterus. No injection or drainage. NECK: Supple, trachea midline. No JVD or lymphadenopathy. CARDIOVASCULAR: Regular rate and rhythm without murmurs, gallops, or rubs. RESPIRATORY: Breath sounds equal bilaterally. No accessory muscle use. GASTROINTESTINAL: Abdomen soft, non-tender, nondistended. MUSCULOSKELETAL: No cyanosis, or edema. BACK: Nontender without obvious deformity. No CVA tenderness. Assessment and Plan Problem List: (1) Chest pain ICD Codes: R07.9 - Chest pain, unspecified (2) Grief reaction ICD Codes: F43.20 - Adjustment disorder, unspecified (3) Schizophrenia ICD Codes: F20.9 - Schizophrenia, unspecified (4) Atrial fibrillation with RVR ICD Codes: I48.91 - Unspecified atrial fibrillation Status: Acute Assessment and Plan 1.) Afib - rate controlled, assymptomatic, rec coumadin or noac due chadsvasc score = 2, however patient has schizophrenia and life threatening bleeding may be high risk due to potential misuse of meds, therefore rec aspirin 81 mg qd 2.) Chest pain - he insists is correlates with his "valium w/d", he refuses cath despite me recommending it due to grief raction and high pretest probability of significant cad due to multiple cardiac risk factors; will follow trends Marcos Hanna MD Jul 11, 2017 14:56
[2017-07-11] MEDS ORDERED: ASPIRIN EC 81 MG TABEC PO ONE (15:00)
[2017-07-11] MEDS: ASPIRIN EC 81 MG TABEC PO SCH (17:27)
[2017-07-11 21:19] LABS: HEMOGLOBIN A1C 5.9 % (4.3-6.0)
--- NOTE | 2017-07-11 23:02 | EKG ---
Date Performed: 07/10/2017 Time Performed: 12:38:06 PTAGE: 72 years EKG: SINUS TACHYCARDIA WITH OCCASIONAL SUPRAVENTRICULAR PREMATURE COMPLEXES ABNORMAL RHYTHM ECG PREVIOUS TRACING : 07/09/2017 22.08 Since the previous tracing, no significant change noted DOCTOR: Luis Griffith Interpretating Date/Time 07/11/2017 23:02:00
[2017-07-12] VITALS (14 sets, daily range): BP systolic 133–155; BP diastolic 70–85; PULSE 78–98; RESP 20; TEMP 97.5–98.3; O2SAT 85–96
[2017-07-12] MEDS: DIAZEPAM 10 MG TAB PO PRN ×2 (01:11→14:26)
[2017-07-12] MEDS: RESP: ALBUTEROL 2.5 MG/IPRATROPIUM 0.5 MG NEB (SCH) NEB ×4 (03:43→20:10)
[2017-07-12] MEDS: methylPREDNISolone SOD SUCC 40 MG/1 ML VIAL IV PUSH SCH ×2 (06:00→14:26)
[2017-07-12] MEDS: PANTOPRAZOLE SOD 40 MG DELAYED RELEASE TAB PO SCH (09:35)
[2017-07-12] MEDS: ASPIRIN EC 81 MG TABEC PO SCH (09:35)
[2017-07-12] MEDS: LEVOFLOXACIN 750 MG TAB PO SCH (09:35)
[2017-07-12] MEDS: DILTIAZEM-CD 120 MG CAP ER PO SCH (10:11)
[2017-07-12] MEDS: ENOXAPARIN SODIUM 40 MG/0.4 ML SYRINGE SQ SCH (10:12)
[2017-07-12] MEDS: SODIUM CHLORIDE 0.9% FLUSH 10 ML FLUSH IV FLUSH SCH ×2 (10:12→22:05)
--- NOTE | 2017-07-12 19:11 | PD.CARD.PN ---
Subjective Subjective Remarks appears more comfortable, denies chest pain Objective Medications Current Medications Medications (Trade) Dose Ordered Sig/Joe Route Start Time Stop Time Status Last Admin (NS Flush) 2 ml UNSCH PRN IV FLUSH 07/09/17 18:30 (NS Flush) 2 ml BID IV FLUSH 07/09/17 21:00 07/12/17 10:12 (Narcan Inj) 0.4 mg UNSCH PRN IV PUSH 07/09/17 18:30 (Levaquin) 750 mg DAILY PO 07/10/17 09:00 07/12/17 09:35 (Duoneb Neb) 1 ampule Q6HR NEB NEB 07/09/17 22:00 07/12/17 15:47 (Duoneb Neb) 1 ampule Q2HR NEB PRN NEB 07/09/17 21:30 07/10/17 12:47 (Protonix) 40 mg DAILY PO 07/10/17 09:00 07/12/17 09:35 (Lovenox Inj) 40 mg Q24H SQ 07/10/17 09:00 07/12/17 10:12 (Cardizem Cd) 120 mg DAILY PO 07/10/17 10:00 07/12/17 10:11 (SoluMEDROL INJ) 40 mg Q8HR IV PUSH 07/10/17 14:00 07/12/17 14:26 (Vasotec Inj) 1.25 mg Q6H PRN IV PUSH 07/11/17 10:45 07/11/17 21:05 (Valium) 10 mg Q12H PRN PO 07/11/17 11:15 07/12/17 14:26 (Ecotrin Ec) 81 mg DAILY PO 07/12/17 09:00 07/12/17 09:35 Vital Signs / I&O Vital Signs Date Time Temp Pulse Resp B/P (MAP) Pulse Ox O2 Delivery O2 Flow Rate FiO2 07/12/17 16:06 98.3 89 20 133/71 (91) 94 07/12/17 12:06 98.2 87 20 147/70 (95) 94 07/12/17 09:55 96 Nasal Cannula 4.00 07/12/17 08:06 97.5 95 20 150/75 (100) 85 07/12/17 04:04 85 3/29/18 03:58 98.0 88 20 151/80 (103) 95 07/12/17 00:19 84 07/12/17 00:12 Nasal Cannula 4.00 07/12/17 00:12 97.9 78 20 150/78 (102) 93 07/11/17 21:02 93 Nasal Cannula 4.00 07/11/17 20:16 82 07/11/17 19:44 Nasal Cannula 4.00 07/11/17 19:43 97.3 84 18 173/96 (121) 94 I/O 07/11/17 07/11/17 07/11/17 07/12/17 07/12/17 07/12/17 06:59 14:59 22:59 06:59 14:59 22:59 Intake Total 240 ml 960 ml 300 ml Balance 240 ml 960 ml 300 ml Intake Oral 240 ml 960 ml 300 ml # Voids 3 3 2 # Bowel Movements 0 2 1 Physical Exam GENERAL: SKIN: Warm and dry. HEAD: Normocephalic. EYES: No scleral icterus. No injection or drainage. NECK: Supple, trachea midline. No JVD or lymphadenopathy. CARDIOVASCULAR: Regular rate and rhythm without murmurs, gallops, or rubs. RESPIRATORY: Breath sounds equal bilaterally. No accessory muscle use. GASTROINTESTINAL: Abdomen soft, non-tender, nondistended. MUSCULOSKELETAL: No cyanosis, or edema. BACK: Nontender without obvious deformity. No CVA tenderness. Assessment and Plan Problem List: (1) Chest pain ICD Codes: R07.9 - Chest pain, unspecified (2) Grief reaction ICD Codes: F43.20 - Adjustment disorder, unspecified (3) Schizophrenia ICD Codes: F20.9 - Schizophrenia, unspecified (4) Atrial fibrillation with RVR ICD Codes: I48.91 - Unspecified atrial fibrillation Status: Acute Assessment and Plan 1.) Afib - rate controlled, assymptomatic, rec coumadin or noac due chadsvasc score = 2, however patient is an alchoholic, has schizophrenia and life threatening bleeding may be high risk due to potential misuse of meds and/or noncompliance with dosing and f/u, therefore rec aspirin 81 mg qd 2.) Chest pain - , he refuses cath despite me recommending it due to grief raction and high pretest probability of significant cad due to multiple cardiac risk factors; will follow trends, chest pain resolved; Dr Lew, rec mps Marcos Hanna MD Jul 12, 2017 19:11
--- NOTE | 2017-07-12 19:35 | HHI.PR ---
Subjective Remarks comfortable d/w him cath- refused Objective Vitals Vital Signs Date Time Temp Pulse Resp B/P (MAP) Pulse Ox O2 Delivery O2 Flow Rate FiO2 07/12/17 16:06 98.3 89 20 133/71 (91) 94 07/12/17 12:06 98.2 87 20 147/70 (95) 94 07/12/17 09:55 96 Nasal Cannula 4.00 07/12/17 08:06 97.5 95 20 150/75 (100) 85 07/12/17 04:04 85 07/12/17 03:58 98.0 88 20 151/80 (103) 95 07/12/17 00:19 84 07/12/17 00:12 Nasal Cannula 4.00 07/12/17 00:12 97.9 78 20 150/78 (102) 93 07/11/17 21:02 93 Nasal Cannula 4.00 07/11/17 20:16 82 07/11/17 19:44 Nasal Cannula 4.00 07/11/17 19:43 97.3 84 18 173/96 (121) 94 I/O 07/11/17 07/11/17 07/11/17 07/12/17 07/12/17 07/12/17 07:00 15:00 23:00 07:00 15:00 23:00 Intake Total 240 ml 960 ml 300 ml 580 ml Balance 240 ml 960 ml 300 ml 580 ml Intake Oral 240 ml 960 ml 300 ml 580 ml # Voids 3 3 2 5 # Bowel Movements 0 2 1 1 Result Diagram: 07/10/17 0443 07/10/17 0443 Imaging Last Impressions Chest X-Ray 07/09/17 1529 Signed Impressions: Service Date/Time: Sunday, July 09, 2017 15:43 - CONCLUSION: No acute disease. There is no evidence of pneumonia or pulmonary edema. Maik Cheung MD CT Angiography 07/09/17 0000 Signed Impressions: Service Date/Time: Sunday, July 09, 2017 21:16 - CONCLUSION: 1. Extensive peribronchial thickening in the lungs especially in the upper lobes. Negative for pulmonary embolus. Juan Guerrero MD Objective Remarks awake and alert, no acute distress anciteric lungs- no rales regular rhythm abdomen soft, nontender extremities no edema A/P Assessment and Plan 72 years old male COPD exacerbation/acute bronchitis - continue neublization - chest CT- no PE - change to po steroids in am New onset A. fib with RVR- now rate controlled Hypertension - better readings- BP 133/71 Mild rhabdo Chest pain possibly due to A. fib rule out ACS - cardiology ff - on CCB, ASa daily, poor candidate for chronic anticoagulation - refused cath Urinary frequency,- symptoms improved UA showed proteinuria but no significant UTI finding History of basal cell carcinoma DVT prophylaxis Merced Lew MD Jul 12, 2017 19:35
[2017-07-12] MEDS ORDERED: ATOR20TA15 PO (20:05)
[2017-07-12] MEDS: ATORVASTATIN 20 MG TAB PO SCH (22:05)
[2017-07-13] VITALS (11 sets, daily range): BP systolic 145–163; BP diastolic 71–87; PULSE 83–97; RESP 17–20; TEMP 97.2–98.2; O2SAT 91–97
[2017-07-13] MEDS ORDERED: methylPREDNISolone SOD SUCC 40 MG/1 ML VIAL IV PUSH SCH (02:00)
[2017-07-13] MEDS: DIAZEPAM 10 MG TAB PO PRN ×2 (02:15→16:45)
[2017-07-13] MEDS: RESP: ALBUTEROL 2.5 MG/IPRATROPIUM 0.5 MG NEB (SCH) NEB ×4 (04:09→21:17)
[2017-07-13] MEDS: PANTOPRAZOLE SOD 40 MG DELAYED RELEASE TAB PO SCH (09:00)
[2017-07-13] MEDS: ENOXAPARIN SODIUM 40 MG/0.4 ML SYRINGE SQ SCH (09:27)
[2017-07-13] MEDS: SODIUM CHLORIDE 0.9% FLUSH 10 ML FLUSH IV FLUSH SCH ×2 (09:27→22:14)
[2017-07-13] MEDS: DILTIAZEM-CD 120 MG CAP ER PO SCH (09:27)
[2017-07-13] MEDS: LEVOFLOXACIN 750 MG TAB PO SCH (09:27)
--- NOTE | 2017-07-13 09:29 | HHI.PR ---
Subjective Remarks no complains of chest pains or shortness of breath feeling "much much better" no diarrhea states heavy smoker in the past Objective Vitals Vital Signs Date Time Temp Pulse Resp B/P (MAP) Pulse Ox O2 Delivery O2 Flow Rate FiO2 07/13/17 08:32 97 Nasal Cannula 4.00 07/13/17 08:00 Nasal Cannula 4.00 07/13/17 04:19 98.2 86 20 160/72 (101) 92 07/13/17 03:40 87 07/13/17 00:00 97.2 90 20 163/80 (107) 92 07/12/17 23:48 98 07/12/17 20:14 Nasal Cannula 4.00 07/12/17 20:11 93 Nasal Cannula 4.00 07/12/17 19:44 97.9 89 20 155/85 (108) 93 07/12/17 19:43 97 07/12/17 16:06 98.3 89 20 133/71 (91) 94 07/12/17 16:00 89 07/12/17 12:06 98.2 87 20 147/70 (95) 94 07/12/17 12:00 92 07/12/17 09:55 96 Nasal Cannula 4.00 I/O 07/12/17 07/12/17 07/12/17 07/13/17 07/13/17 07/13/17 07:00 15:00 23:00 07:00 15:00 23:00 Intake Total 300 ml 580 ml 720 ml Balance 300 ml 580 ml 720 ml Intake Oral 300 ml 580 ml 720 ml # Voids 2 5 5 # Bowel Movements 1 1 1 Result Diagram: 07/10/17 0443 07/10/17 0443 Imaging Last Impressions Chest X-Ray 07/09/17 1529 Signed Impressions: Service Date/Time: Sunday, July 09, 2017 15:43 - CONCLUSION: No acute disease. There is no evidence of pneumonia or pulmonary edema. Maik Cheung MD CT Angiography 07/09/17 0000 Signed Impressions: Service Date/Time: Sunday, July 09, 2017 21:16 - CONCLUSION: 1. Extensive peribronchial thickening in the lungs especially in the upper lobes. Negative for pulmonary embolus. Juan Guerrero MD Objective Remarks awake and alert, no acute distress anciteric lungs- no rales, occasional exp. wheeze regular rhythm abdomen soft, nontender extremities no edema A/P Assessment and Plan 72 years old male COPD exacerbation/acute bronchitis - continue neublization - chest CT- no PE - change to po steroidsthis am - walk test if qualifies for home 02 - increase activity New onset A. fib with RVR- now rate controlled Hypertension - better readings- but not ideal Mild rhabdo Chest pain possibly due to A. fib - no further chest pains - cardiology ff. Echo good - on CCB, - increase to 180 CD daily ASa daily, poor candidate for chronic anticoagulation - refused cath Urinary frequency,- symptoms improved UA showed proteinuria but no significant UTI finding History of basal cell carcinoma DVT prophylaxis- Up and ambulate- increase activity. Merced Patel MD Jul 13, 2017 09:29
[2017-07-13] MEDS: ASPIRIN EC 81 MG TABEC PO SCH (09:31)
--- NOTE | 2017-07-13 10:20 | HHI.FF ---
Face to Face Verification Diagnosis: (1) COPD (chronic obstructive pulmonary disease) (2) Atrial fibrillation with RVR (3) Chest pain Physical Therapy Order: Evaluate and Treat Occupational Therapy Order: Evaluate and Treat Home Health Nursing Order: Medical education Signs/symptoms of disease process Oxygen administration education Medication education-adverse effect Nursing assessment with vital signs [employer] Order: To Evaluate: Living conditions/environment, Support services I have seen patient Gopi Stacy on 07/13/17. My clinical findings support the need for the requested home health care services because: Ltd mobility - disease progression Patient has SOB Deconditioned w/ increased weakness Need for psychosocial assistance I certify that my clinical findings support that this patient is homebound because: Hx COPD- exertion dyspnea/weakness Need for psychosocial assistance Merced Lew MD Jul 13, 2017 10:20
[2017-07-13] MEDS ORDERED: OXYGENDME NAS.CANULA (10:21)
--- NOTE | 2017-07-13 12:38 | PD.CARD.PN ---
Subjective Subjective Remarks appears more comfortable, denies chest pain Objective Medications Current Medications Medications (Trade) Dose Ordered Sig/Joe Route Start Time Stop Time Status Last Admin (NS Flush) 2 ml UNSCH PRN IV FLUSH 07/09/17 18:30 (NS Flush) 2 ml BID IV FLUSH 07/09/17 21:00 07/13/17 09:27 (Narcan Inj) 0.4 mg UNSCH PRN IV PUSH 07/09/17 18:30 (Levaquin) 750 mg DAILY PO 07/10/17 09:00 07/13/17 09:27 (Duoneb Neb) 1 ampule Q6HR NEB NEB 07/09/17 22:00 07/13/17 08:32 (Duoneb Neb) 1 ampule Q2HR NEB PRN NEB 07/09/17 21:30 07/10/17 12:47 (Protonix) 40 mg DAILY PO 07/10/17 09:00 07/13/17 09:00 (Lovenox Inj) 40 mg Q24H SQ 07/10/17 09:00 07/13/17 09:27 (Vasotec Inj) 1.25 mg Q6H PRN IV PUSH 07/11/17 10:45 07/11/17 21:05 (Valium) 10 mg Q12H PRN PO 07/11/17 11:15 07/13/17 02:15 (Ecotrin Ec) 81 mg DAILY PO 07/12/17 09:00 07/13/17 09:31 (Lipitor) 20 mg HS PO 07/12/17 21:00 07/12/17 22:05 (Spiriva Inh) 18 mcg DAILY INH 07/13/17 12:00 (Symbicort 160-4.5 Mcg Inh) 1 puff Q12HR INH 07/13/17 12:00 (Deltasone) 20 mg BID@0900,1800 PO 07/13/17 18:00 (Cardizem Cd) 180 mg DAILY PO 07/14/17 09:00 Vital Signs / I&O Vital Signs Date Time Temp Pulse Resp B/P (MAP) Pulse Ox O2 Delivery O2 Flow Rate FiO2 07/13/17 08:32 97 Nasal Cannula 4.00 07/13/17 08:00 97.3 86 20 160/74 (102) 94 07/13/17 08:00 Nasal Cannula 4.00 07/13/17 04:19 98.2 86 20 160/72 (101) 92 07/13/17 03:40 87 07/13/17 00:00 97.2 90 20 163/80 (107) 92 07/12/17 23:48 98 07/12/17 20:14 Nasal Cannula 4.00 07/12/17 20:11 93 Nasal Cannula 4.00 07/12/17 19:44 97.9 89 20 155/85 (108) 93 07/12/17 19:43 97 07/12/17 16:06 98.3 89 20 133/71 (91) 94 07/12/17 16:00 89 I/O 07/12/17 07/12/17 07/12/17 07/13/17 07/13/17 07/13/17 07:00 15:00 23:00 07:00 15:00 23:00 Intake Total 300 ml 580 ml 720 ml Balance 300 ml 580 ml 720 ml Intake Oral 300 ml 580 ml 720 ml # Voids 2 5 5 # Bowel Movements 1 1 1 Physical Exam GENERAL: SKIN: Warm and dry. HEAD: Normocephalic. EYES: No scleral icterus. No injection or drainage. NECK: Supple, trachea midline. No JVD or lymphadenopathy. CARDIOVASCULAR: Regular rate and rhythm without murmurs, gallops, or rubs. RESPIRATORY: Breath sounds equal bilaterally. No accessory muscle use. GASTROINTESTINAL: Abdomen soft, non-tender, nondistended. MUSCULOSKELETAL: No cyanosis, or edema. BACK: Nontender without obvious deformity. No CVA tenderness. Assessment and Plan Problem List: (1) Chest pain ICD Codes: R07.9 - Chest pain, unspecified (2) Grief reaction ICD Codes: F43.20 - Adjustment disorder, unspecified (3) Schizophrenia ICD Codes: F20.9 - Schizophrenia, unspecified (4) Atrial fibrillation with RVR ICD Codes: I48.91 - Unspecified atrial fibrillation Status: Acute Assessment and Plan 1.) Afib - rate controlled, assymptomatic, rec coumadin or noac due chadsvasc score = 2, however patient is an alchoholic, has schizophrenia and life threatening bleeding may be high risk due to potential misuse of meds and/or noncompliance with dosing and f/u, therefore rec aspirin 81 mg qd 2.) Chest pain - , he refuses cath despite me recommending it due to grief raction and high pretest probability of significant cad due to multiple cardiac risk factors; will follow trends, chest pain resolved; Dr Lew, rec mps Marcos Hanna MD Jul 13, 2017 12:38
[2017-07-13] MEDS: TIOTROPIUM BROMIDE 18 MCG INH INH SCH (16:45)
[2017-07-13] MEDS: BUDESONIDE-FORMOTEROL 160/4.5 MCG INHALER INH SCH ×2 (16:45→22:12)
[2017-07-13] MEDS: predniSONE 20 MG TAB PO SCH (16:45)
[2017-07-13] MEDS: ATORVASTATIN 20 MG TAB PO SCH (22:15)
[2017-07-14] VITALS: BP 158/79; PULSE 83; PULSE 96; RESP 20; TEMP 98; O2SAT 92
[2017-07-14 04:00] VITALS: BP 153/82; PULSE 76; PULSE 83; RESP 20; TEMP 97.2; O2SAT 93
[2017-07-14] MEDS: DIAZEPAM 10 MG TAB PO PRN (05:28)
[2017-07-14 07:52] VITALS: PULSE 74
[2017-07-14 08:00] VITALS: BP 156/75; PULSE 72; RESP 21; TEMP 97.5; O2SAT 93
[2017-07-14] MEDS: LEVOFLOXACIN 750 MG TAB PO SCH (08:49)
[2017-07-14] MEDS: ENOXAPARIN SODIUM 40 MG/0.4 ML SYRINGE SQ SCH (08:50)
[2017-07-14] MEDS: ASPIRIN EC 81 MG TABEC PO SCH (08:50)
[2017-07-14] MEDS: PANTOPRAZOLE SOD 40 MG DELAYED RELEASE TAB PO SCH (08:50)
[2017-07-14] MEDS: BUDESONIDE-FORMOTEROL 160/4.5 MCG INHALER INH SCH (08:52)
[2017-07-14] MEDS: predniSONE 20 MG TAB PO SCH (08:52)
[2017-07-14] MEDS: TIOTROPIUM BROMIDE 18 MCG INH INH SCH (08:52)
[2017-07-14] MEDS: SODIUM CHLORIDE 0.9% FLUSH 10 ML FLUSH IV FLUSH SCH (08:53)
--- NOTE | 2017-07-14 08:55 | PD.CARD.PN ---
Subjective Subjective Remarks appears more comfortable, denies chest pain Objective Medications Current Medications Medications (Trade) Dose Ordered Sig/Joe Route Start Time Stop Time Status Last Admin (NS Flush) 2 ml UNSCH PRN IV FLUSH 07/09/17 18:30 (NS Flush) 2 ml BID IV FLUSH 07/09/17 21:00 07/14/17 08:53 (Narcan Inj) 0.4 mg UNSCH PRN IV PUSH 07/09/17 18:30 (Levaquin) 750 mg DAILY PO 07/10/17 09:00 07/14/17 08:49 (Duoneb Neb) 1 ampule Q2HR NEB PRN NEB 07/09/17 21:30 07/10/17 12:47 (Protonix) 40 mg DAILY PO 07/10/17 09:00 07/14/17 08:50 (Lovenox Inj) 40 mg Q24H SQ 07/10/17 09:00 07/14/17 08:50 (Vasotec Inj) 1.25 mg Q6H PRN IV PUSH 07/11/17 10:45 07/11/17 21:05 (Valium) 10 mg Q12H PRN PO 07/11/17 11:15 07/14/17 05:28 (Ecotrin Ec) 81 mg DAILY PO 07/12/17 09:00 07/14/17 08:50 (Lipitor) 20 mg HS PO 07/12/17 21:00 07/13/17 22:15 (Spiriva Inh) 18 mcg DAILY INH 07/13/17 12:00 07/14/17 08:52 (Symbicort 160-4.5 Mcg Inh) 1 puff Q12HR INH 07/13/17 12:00 07/14/17 08:52 (Deltasone) 20 mg BID@0900,1800 PO 07/13/17 18:00 07/14/17 08:52 (Cardizem Cd) 180 mg DAILY PO 07/14/17 09:00 07/14/17 08:49 Vital Signs / I&O Vital Signs Date Time Temp Pulse Resp B/P (MAP) Pulse Ox O2 Delivery O2 Flow Rate FiO2 07/14/17 08:00 Room Air 07/14/17 04:00 76 07/14/17 04:00 97.2 83 20 153/82 (105) 93 07/14/17 00:00 98.0 83 20 158/79 (105) 92 07/14/17 00:00 96 07/13/17 21:18 95 21 07/13/17 20:00 97.6 97 20 145/71 (95) 92 07/13/17 20:00 87 07/13/17 20:00 Room Air 07/13/17 16:00 97.5 90 17 150/87 (108) 91 07/13/17 15:49 90 07/13/17 12:00 97.2 84 20 146/84 (104) 92 I/O 07/13/17 07/13/17 07/13/17 07/14/17 07/14/17 07/14/17 07:00 15:00 23:00 07:00 15:00 23:00 Intake Total 720 ml Balance 720 ml Intake Oral 720 ml # Voids 5 # Bowel Movements 1 Physical Exam GENERAL: SKIN: Warm and dry. HEAD: Normocephalic. EYES: No scleral icterus. No injection or drainage. NECK: Supple, trachea midline. No JVD or lymphadenopathy. CARDIOVASCULAR: Regular rate and rhythm without murmurs, gallops, or rubs. RESPIRATORY: Breath sounds equal bilaterally. No accessory muscle use. GASTROINTESTINAL: Abdomen soft, non-tender, nondistended. MUSCULOSKELETAL: No cyanosis, or edema. BACK: Nontender without obvious deformity. No CVA tenderness. Assessment and Plan Problem List: (1) Chest pain ICD Codes: R07.9 - Chest pain, unspecified (2) Grief reaction ICD Codes: F43.20 - Adjustment disorder, unspecified (3) Schizophrenia ICD Codes: F20.9 - Schizophrenia, unspecified (4) Atrial fibrillation with RVR ICD Codes: I48.91 - Unspecified atrial fibrillation Status: Acute Assessment and Plan 1.) Afib - rate controlled, assymptomatic, rec coumadin or noac due chadsvasc score = 2, however patient is an alchoholic, has schizophrenia and life threatening bleeding may be high risk due to potential misuse of meds and/or noncompliance with dosing and f/u, therefore rec aspirin 81 mg qd 2.) Chest pain - , he refuses cath despite me recommending it due to grief raction and high pretest probability of significant cad due to multiple cardiac risk factors; chest pain resolved; [facility] 07[facility], d/w Marcos Mccormack MD Jul 14, 2017 08:55
[2017-07-14] MEDS ORDERED: DILTIAZEM-CD 180 MG CAP ER PO SCH (09:00)
[2017-07-14 12:00] VITALS: BP 142/75; PULSE 80; RESP 18; TEMP 97.7; O2SAT 93
--- NOTE | 2017-07-14 14:48 | HHI.PR ---
Subjective Remarks no complains in good spirits smiling has supportive friends- [facility] Objective Vitals Vital Signs Date Time Temp Pulse Resp B/P (MAP) Pulse Ox O2 Delivery O2 Flow Rate FiO2 07/14/17 12:00 97.7 80 18 142/75 (97) 93 07/14/17 08:00 97.5 72 21 156/75 (102) 93 07/14/17 08:00 Room Air 07/14/17 07:52 74 07/14/17 04:00 76 07/14/17 04:00 97.2 83 20 153/82 (105) 93 07/14/17 00:00 98.0 83 20 158/79 (105) 92 07/14/17 00:00 96 07/13/17 21:18 95 21 07/13/17 20:00 97.6 97 20 145/71 (95) 92 07/13/17 20:00 87 07/13/17 20:00 Room Air 07/13/17 16:00 97.5 90 17 150/87 (108) 91 07/13/17 15:49 90 I/O 07/13/17 07/13/17 07/13/17 07/14/17 07/14/17 07/14/17 07:00 15:00 23:00 07:00 15:00 23:00 Intake Total 720 ml Balance 720 ml Intake Oral 720 ml # Voids 5 # Bowel Movements 1 Result Diagram: 07/10/17 0443 07/10/17 0443 Imaging Last Impressions Chest X-Ray 07/09/17 1529 Signed Impressions: Service Date/Time: Sunday, July 09, 2017 15:43 - CONCLUSION: No acute disease. There is no evidence of pneumonia or pulmonary edema. Maik Cheung MD CT Angiography 07/09/17 0000 Signed Impressions: Service Date/Time: Sunday, July 09, 2017 21:16 - CONCLUSION: 1. Extensive peribronchial thickening in the lungs especially in the upper lobes. Negative for pulmonary embolus. Juan Guerrero MD Objective Remarks awake and alert, no acute distress anciteric lungs- no rales, no wheezes regular rhythm abdomen soft, nontender extremities no edema A/P Assessment and Plan 72 years old male COPD exacerbation/acute bronchitis - continue neublization - chest CT- no PE - changed to po steroids - walk test - 89% at rooma ir- does not qwualify for home 02 - increase activity New onset A. fib with RVR- now rate controlled Hypertension - better readings- but not ideal Mild rhabdo Chest pain possibly due to A. fib - no further chest pains - cardiology ff. Echo good - on CCB, - increase to 180 CD daily ASa daily, poor candidate for chronic anticoagulation - refused cath Urinary frequency,- symptoms improved UA showed proteinuria but no significant UTI finding History of basal cell carcinoma DVT prophylaxis- Up and ambulate- increase activity. Lovenox DC today OP f fup Merced Austin MD Jul 14, 2017 14:48
[2017-07-14] MEDS ORDERED: LEVA750T9 PO (14:55)
[2017-07-14] MEDS ORDERED: Budeson-Formot 160-4.5 Mcg Inh INH (14:55)
[2017-07-14] MEDS ORDERED: CARD180C5 PO (14:55)
[2017-07-14] MEDS ORDERED: PANT40TA3 PO (14:55)
[2017-07-14] MEDS ORDERED: ECASA81 PO (14:55)
[2017-07-14] MEDS ORDERED: SPIRCAP INH (14:55)
[2017-07-14] MEDS ORDERED: PRED5TAB PO (15:01)
--- NOTE | 2017-07-14 17:30 | HHI.DS ---
Discharge Summary Admission Date Jul 09, 2017 at 18:26 Discharge Date: Jul 14, 2017 Admitting Diagnosis A fib with RVR, Chest pain, SOB (1) Atrial fibrillation ICD Code: I48.91 - Unspecified atrial fibrillation Diagnosis: Principal Procedures none Brief History - From Admission History from patient, ER PA communication, and review of medical records. Patient reported that he was having sciatica symptoms about 2 weekends ago. He states that on and Sunday, about 4 days ago, he started having "pulmonary issues". When asked to clarify this, he reports that he was having coughing, severe congestion, with some chills and sweats. He denies fever there. He reports that his sputum is whitish thick color. He reports history of COPD. However he is not on inhalers at home yet. Not on home oxygen. He reports that his shortness of breath was not improving and therefore called the [facility] and had an appointment with them today. At the [facility], he did have a chest x-ray done. He was then sent to the hospital via ambulance because of his respiratory distress. He arrived to the emergency room on CPAP by EMS. Patient himself denies any nausea/vomiting. He reports of some abdominal pain but states that this is resolved now. He noted the abdominal pain only when he was taking ibuprofen. Denies any urinary symptoms except for frequent urination. Denies diarrhea. Denies any nausea, no vomiting Denies blood in his stool or urine. When asked about the chest pains, patient stated it was more of his pectoral muscle pain on the left side and also in between his shoulder blades. He however states that the head chest pain is more of a heaviness as well. Patient denies any recent travels. Reports he is mostly sitting at home though. Because of his disability. Reports that his disability is secondary to mental health though. Patient during my interview is noted to be with obvious upper airway congestion with heavy audible cough and congestion CBC/BMP: 07/10/17 0443 07/10/17 0443 Imaging Last Impressions Chest X-Ray 07/09/17 1529 Signed Impressions: Service Date/Time: Sunday, July 09, 2017 15:43 - CONCLUSION: No acute disease. There is no evidence of pneumonia or pulmonary edema. Maik Cheung MD CT Angiography 07/09/17 0000 Signed Impressions: Service Date/Time: Sunday, July 09, 2017 21:16 - CONCLUSION: 1. Extensive peribronchial thickening in the lungs especially in the upper lobes. Negative for pulmonary embolus. Juan Guerrero MD PE at Discharge awake and alert, no acute distress anciteric lungs- no rales, no wheezes regular rhythm abdomen soft, nontender extremities no edema Pt update on day of discharge up and ambulating no chest discomfort or shortness of breath steady Hospital Course 72 years old male COPD exacerbation/acute bronchitis - continue neublization - chest CT- no PE - changed to po steroids- walk test - 89% at room air- does not qualify for home 02 - increase activity New onset A. fib with RVR- now rate controlled Hypertension - better readings- but not ideal Mild rhabdo Chest pain possibly due to A. fib - no further chest pains - cardiology ff. Echo good - on CCB, - increase to 180 CD daily ASa daily, poor candidate for chronic anticoagulation - refused cath Urinary frequency,- symptoms improved UA showed proteinuria but no significant UTI finding History of basal cell carcinoma DVT prophylaxis- Up and ambulate- increase activity as pulmonary status tolerates. Lovenox DC today [facility] Condition on Discharge: Stable Discharge Disposition: Discharge Home Discharge Time: > 30 minutes Discharge Instructions DIET: Follow Instructions for: Heart Healthy Diet Speech Therapy-Diet Recommends: Regular Activities you can perform: Weight Bearing as Selene Activities to Avoid: Strenuous Activity Follow up Referrals: Cardiology - 07/16/17 with [facility]- cardiology PCP Follow-up - 07/16/17 with [facility] New Medications: Prednisone (Prednisone) 5 Mg Tab 5 MG PO BID for COPD, #18 TAB 0 Refills take 2 tab bid for 3 days then 1 tab po bid x 2 days then 1 tab daily x 2 days then DC Aspirin DR (Aspirin DR) 81 Mg Tabdr 81 MG PO DAILY for AFIB, #30 TAB 1 Refill Diltiazem CD 24 HR (Cardizem CD 24 HR) 180 Mg Caper 180 MG PO DAILY for afib for 30 Days, #30 CAP Levofloxacin (Levaquin) 750 Mg Tablet 750 MG PO DAILY for COPD for 2 Days, #2 TAB Pantoprazole (Pantoprazole) 40 Mg Tab 40 MG PO DAILY for GIPro for 30 Days, #30 TAB Tiotropium Inh (Spiriva Handihaler) 18 Mcg Cap 18 MCG INH DAILY for COPD for 30 Days, #1 CAP 1 Refill 1 capsule = 18 mcg [Budeson-Formot 160-4.5 Mcg Inh] () 60 PUFF AERO 1 PUFF INH Q12HR for COPD for 30 Days Continued Medications: Atorvastatin (Atorvastatin) 20 Mg Tab 20 MG PO HS for Cholesterol Management, #30 TAB 0 Refills Diazepam (Valium) 10 Mg Tab 20 MG PO DAILY, TAB 0 Refills Merced Lew MD Jul 14, 2017 17:30
== END 2017-07-14 18:19 | disposition home or self-care (01) ==
LOC: NEPC 15:22 → INTOOBSV 18:26 → NEDA 18:26 → NEPFCDU 22:11 → N04B 07-10 21:45
PROVIDERS: ADMIT Internal Medicine; ATTEND Internal Medicine
DX: J44.1 Chronic obstructive pulmonary disease with (acute) exacerbation (principal); I48.91 Unspecified atrial fibrillation; I10 Essential (primary) hypertension; R35.0 Frequency of micturition; M62.82 Rhabdomyolysis; Z91.19 Patient's noncompliance with other medical treatment and regimen; M54.30 Sciatica, unspecified side; R80.9 Proteinuria, unspecified; E78.5 Hyperlipidemia, unspecified; M19.90 Unspecified osteoarthritis, unspecified site; F17.210 Nicotine dependence, cigarettes, uncomplicated; F12.90 Cannabis use, unspecified, uncomplicated; Z85.828 Personal history of other malignant neoplasm of skin
CPT/HCPCS: 71045; 71275; 80048; 81001; 82550; 82552; 83036; 83735; 83880; 84484; 85025; 85379; 85610; 85730; 93005; 93306; 94002; 94618; 94640; 94664; 96372; 96374; 96375; 96376; 99291; G0378; J1650; J2270; J2920; J7512; Q9967

== ENCOUNTER 2017-08-15 11:57 | Inpatient (IN) | payer OTHER, MEDICARE ==
[2017-08-15] VITALS (8 sets, daily range): BP systolic 130–178; BP diastolic 67–86; PULSE 78–100; RESP 16–24; TEMP 97.9–99; O2SAT 94–98
[~2017-08-15] VITALS: Ht 185.4 cm; Wt 111.0 kg
[~2017-08-15 11:57] MED LIST: ATOR20TA15 PO; Budeson-Formot 160-4.5 Mcg Inh INH; CARD180C5 PO; DIAZ10 PO; ECASA81 PO; LEVA750T9 PO; PANT40TA3 PO; PRED5TAB PO; SPIRCAP INH; zinc
[2017-08-15] MEDS ORDERED: SODIUM CHLORIDE 0.9% FLUSH 10 ML FLUSH IVF PRN (12:15)
--- NOTE | 2017-08-15 12:30 | PD ---
HPI Chief Complaint: Chest Pain Time Seen by Provider: 12:04 Travel History International Travel<30 days: No Contact w/Intl Traveler<30days: No Traveled to known affect area: No History of Present Illness HPI 72 YO M with PMH of a fib with RVR, COPD, anxiety, schizophrenia, GERD presents to the ED for evaluation of CP. Pain is described as "a discomfort" of the left lateral precordium. Intermittent. No alleviating or exacerbating factors. Maximally 10. Patient denies associated SOB, N/V, diaphoresis. He states he has had this pain for months. He denies overuse or trauma to the area. He denies cough, abdominal pain, dysuria, lower extremity edema. He endorses compliance with daily medications. He has not followed up with a hearing aid repair technician as planned at last discharge. He states that he had a negative stress test approximately [facility]. He does not smoke cigarettes, endorses smoking marijuana daily. [facility] seen [facility] today and sent here for further evaluation. PFSH Past Medical History Arthritis: Yes Autoimmune Disease: No Blood Disorders: No Anxiety: Yes Depression: Yes Cancer: Yes (SKIN) Cardiovascular Problems: Yes COPD: Yes Endocrine: No Genitourinary: No Musculoskeletal: Yes Neurologic: No Psychiatric: Yes (SCHIZOPHRENIA) Reproductive: No Respiratory: Yes Past Surgical History Abdominal Surgery: No Cardiac Surgery: No Ear Surgery: No Endocrine Surgery: No Eye Surgery: No Genitourinary Surgery: No Gynecologic Surgery: No Oral Surgery: Yes (TONSILLECTOMY) Thoracic Surgery: No Social History Alcohol Use: Yes (4-6 DAILY) Tobacco Use: Yes (2 PACKS DAILY) Substance Use: Yes (MARIJUANA SOMETIMES) Allergies-Medications (Allergen,Severity, Reaction): Coded Allergies: Sulfa (Sulfonamide Antibiotics) (Verified Allergy, Severe, Rash, 08/15/17) Reported Meds & Prescriptions Reported Meds & Active Scripts Active Pantoprazole (Pantoprazole Sodium) 40 Mg Tab 40 Mg PO DAILY 30 Days [Budeson-Formot 160-4.5 Mcg Inh] 60 PUFF Aero 1 Puff INH Q12HR [address] (Aspirin) 81 Mg Tabdr 81 Mg PO DAILY Cardizem CD 24 HR (Diltiazem CD 24 HR) 180 Mg Caper 180 Mg PO DAILY 30 Days Spiriva Handihaler (Tiotropium Inh) 18 Mcg Cap 18 Mcg INH DAILY 30 Days 1 capsule = 18 mcg Reported Xarelto (Rivaroxaban) 20 Mg Tab 20 Mg PO DAILY Atorvastatin (Atorvastatin Calcium) 20 Mg Tab 40 Mg PO HS [zinc] Unknown Dose Valium (Diazepam) 10 Mg Tab 20 Mg PO DAILY Review of Systems Except as stated in HPI: all other systems reviewed are Neg Physical Exam Narrative GENERAL: Well-nourished, well-developed white male in no acute distress. SKIN: Focused skin assessment warm/dry. HEAD: Normocephalic. EYES: No scleral icterus. No injection or drainage. NECK: Supple, trachea midline. No JVD or lymphadenopathy. CARDIOVASCULAR: Regular rate and rhythm without murmurs, gallops, or rubs. CHEST: Nontender throughout without deformity or crepitus. No retractions or use of accessory muscles. RESPIRATORY: Breath sounds equal bilaterally. Very mild end expiratory wheezing in the bilateral upper lobes. GASTROINTESTINAL: Abdomen soft, non-tender, nondistended. Active bowel sounds. MUSCULOSKELETAL: No cyanosis. Trace edema to the ankles bilaterally. BACK: Nontender without obvious deformity. No CVA tenderness. Data Data Last Documented VS Vital Signs Date Time Temp Pulse Resp B/P (MAP) Pulse Ox O2 Delivery O2 Flow Rate FiO2 08/15/17 12:21 98.2 88 18 132/71 (91) 96 Room Air Orders Orders Electrocardiogram (08/15/17 12:06) Basic Metabolic Panel (Bmp) (08/15/17 12:06) Ckmb (Isoenzyme) Profile (08/15/17 12:06) Complete Blood Count With Diff (08/15/17 12:06) Magnesium (Mg) (08/15/17 12:06) Prothrombin Time / Inr (Pt) (08/15/17 12:06) Act Partial Throm Time (Ptt) (08/15/17 12:06) Troponin I (08/15/17 12:06) Ecg Monitoring (08/15/17 12:06) Bilateral Bp Monitoring (08/15/17 12:06) Iv Access Insert/Monitor (08/15/17 12:06) Oximetry (08/15/17 12:06) Sodium Chloride 0.9% Flush (Ns Flush) (08/15/17 12:15) Chest, Pa & Lat (08/15/17 12:06) Admit Order (Ed Use Only) (08/15/17 13:41) Labs Laboratory Tests Test 08/15/17 12:15 White Blood Count 5.0 TH/MM3 Red Blood Count 4.12 MIL/MM3 Hemoglobin 13.1 GM/DL Hematocrit 38.3 % Mean Corpuscular Volume 93.0 FL Mean Corpuscular Hemoglobin 31.9 PG Mean Corpuscular Hemoglobin Concent 34.3 % Red Cell Distribution Width 14.1 % Platelet Count 238 TH/MM3 Mean Platelet Volume 8.5 FL Neutrophils (%) (Auto) 60.9 % Lymphocytes (%) (Auto) 22.0 % Monocytes (%) (Auto) 16.3 % Eosinophils (%) (Auto) 0.3 % Basophils (%) (Auto) 0.5 % Neutrophils # (Auto) 3.1 TH/MM3 Lymphocytes # (Auto) 1.1 TH/MM3 Monocytes # (Auto) 0.8 TH/MM3 Eosinophils # (Auto) 0.0 TH/MM3 Basophils # (Auto) 0.0 TH/MM3 CBC Comment DIFF FINAL Differential Comment Prothrombin Time 11.6 SEC Prothromb Time International Ratio 1.1 RATIO Activated Partial Thromboplast Time 29.3 SEC Blood Urea Nitrogen 10 MG/DL Creatinine 0.91 MG/DL Random Glucose 82 MG/DL Calcium Level 9.1 MG/DL Magnesium Level 2.1 MG/DL Sodium Level 138 MEQ/L Potassium Level 4.1 MEQ/L Chloride Level 104 MEQ/L Carbon Dioxide Level 27.0 MEQ/L Anion Gap 7 MEQ/L Estimat Glomerular Filtration Rate 82 ML/MIN Total Creatine Kinase 65 U/L Troponin I LESS THAN 0.02 NG/ML MDM Medical Decision Making Medical Screen Exam Complete: Yes Emergency Medical Condition: Yes Differential Diagnosis Chest pain versus angina versus ACS versus musculoskeletal chest pain versus COPD versus other Narrative Course 72 YO M with PMH of a fib with RVR, COPD, anxiety, schizophrenia, GERD presents to the ED for evaluation of CP. Pain is described as "a discomfort" of the left lateral precordium. Intermittent. Maximally 4/10. No associated SOB, N/V, diaphoresis. He states he has had this pain for months. He denies overuse or trauma to the area. He has not followed up with a hearing aid repair technician as planned at last discharge. He states that he had a negative stress test approximately [facility]. He does not smoke cigarettes, endorses smoking marijuana daily. He was seen [facility] the [facility] today and sent here for further evaluation. Patient is afebrile, pulse 100, BP 170/81 on presentation. Vitals normalize during the course of evaluation. Physical exam is unremarkable. Patient is somewhat bizarre, wearing sunglasses throughout the course of the interaction. EKG rate 90, sinus rhythm. [facility] interval 182, QRS 86, QTc 396 ms. Normal axis. No acute ST changes. Reviewed by . CXR: No acute disease per radiology read. Cardiac enzymes negative 1. No concerning abnormalities of coags, CBC, CMP. Discussed the patient with Dr. Wall. She recommends admission to the chest pain center. I discussed this plan with the patient who is agreeable. Please see [facility] notes for disposition. Patient was evaluated by Dr. Rangel. He would like this patient admitted to medicine and plans heart cath. I spoke with Dr. Melendez who agrees to accept the patient to the medicine service. Cara Erwin August 15, 2017 12:30
--- NOTE | 2017-08-15 12:44 | RADRPT ---
EXAM DATE/TIME: 08/15/2017 12:33 [facility] COMPARISON: CHEST SINGLE AP, July 09, 2017, 15:43. INDICATIONS : Chest pain, left arm pain, sent by MEDICAL HISTORY : Chronic obstructive pulmonary disease. skin cancer SURGICAL HISTORY : None. ENCOUNTER: Initial ACUITY: 1 month PAIN SCORE: 3/10 LOCATION: Bilateral chest FINDINGS: PA and lateral views of the chest demonstrate the lungs to be symmetrically aerated without evidence of mass, infiltrate or effusion. The cardiomediastinal contours are unremarkable. Osseous structure s are intact. CONCLUSION: No acute disease. Maik Cheung MD on August 15, 2017 at 12:42 Board Certified Radiologist. This report was verified electronically.
[2017-08-15 12:51] LABS: AUTOMATED NEUTROPHIL # 3.1 TH/MM3 (1.8-7.7); BASOPHIL % 0.5 % (0.0-2.0); EOSINOPHIL % 0.3 % (0.0-4.0); HEMATOCRIT 38.3 % (39.0-51.0); HEMOGLOBIN 13.1 GM/DL (13.0-17.0); LYMPHOCYTE # 1.1 TH/MM3 (1.0-4.8); MEAN CORPUSCULAR HEMOGLOBIN 31.9 PG (27.0-34.0); MEAN CORPUSCULAR HGB CONC 34.3 % (32.0-36.0); MEAN PLATELET VOLUME 8.5 FL (7.0-11.0); MONO % 16.3 % (0.0-8.0); MONOCYTE # 0.8 TH/MM3 (0-0.9); NEUT % 60.9 % (16.0-70.0); PLATELET COUNT 238 TH/MM3 (150-450); RED BLOOD COUNT 4.12 MIL/MM3 (4.50-5.90); RED CELL DISTRIBUTION WIDTH 14.1 % (11.6-17.2)
[2017-08-15 12:59] LABS: INTERNATIONAL NORMALIZED RATIO 1.1 RATIO; PROTHROMBIN TIME - PATIENT 11.6 SEC (9.8-11.6)
[2017-08-15 13:19] LABS: BLOOD UREA NITROGEN 10 MG/DL (7-18); CALCIUM 9.1 MG/DL (8.5-10.1); CHLORIDE 104 MEQ/L (98-107); CREATININE 0.91 MG/DL (0.60-1.30); GLOMERULAR FILTRATION RATE 82 ML/MIN (>89); GLUCOSE,RANDOM 82 MG/DL (74-106); MAGNESIUM 2.1 MG/DL (1.5-2.5); SODIUM (NA) 138 MEQ/L (136-145)
[2017-08-15 13:23] LABS: TROPONIN I LESS THAN 0.02 NG/ML (0.02-0.05)
[2017-08-15] MEDS ORDERED: XARE20TA PO (14:13)
[2017-08-15] MEDS ORDERED: SENNOSIDES 8.6 MG TAB PO PRN (16:45)
[2017-08-15] MEDS ORDERED: SODIUM CHLORIDE 0.9% FLUSH 10 ML FLUSH IV FLUSH PRN (16:45)
[2017-08-15] MEDS ORDERED: NALOXONE HCL 0.4 MG/ML AMP IV PUSH PRN (16:45)
[2017-08-15] MEDS ORDERED: ALPRAZolam 0.25 MG TAB PO PRN (16:45)
[2017-08-15] MEDS ORDERED: MAGNESIUM HYDROXIDE SUSP 30 ML CUP PO PRN (16:45)
[2017-08-15] MEDS ORDERED: NITROGLYCERIN 0.4 MG SL 25 TABS/BTL SL PRN (16:45)
--- NOTE | 2017-08-15 16:46 | HHI.HP ---
[facility] Service [facility] Primary Care Physician [facility] Admission Diagnosis chest pain Diagnoses: (1) Chest pain Travel History International Travel<30 Days: No Contact w/Intl Traveler <30 Da: No Traveled to Known Affected Are: No History of Present Illness 72-year-old male with history of chest pain that began on July 03 following COPD exacerbation induced by bronchitis. He states that the hypoxic episode of that time induced onset of atrial fibrillation and that the atrial fibrillation has caused him chest pain on and off for the past 1-1/2 months. He describes the the sensation as more discomfort and pain, involving left arm tingling, associated with dyspnea, lasting 5-25 seconds per episode. He denies any nausea vomiting, denies diaphoresis. His family history includes 2 grandfathers who both had coronary artery disease. He has known to Dr. Hanna as an outpatient. Review of Systems Constitutional: DENIES: Diaphoretic episodes, Fatigue, Fever, Weight gain, Weight loss, Chills Eyes: DENIES: Blurred vision, Diplopia, Eye inflammation, Eye pain, Vision loss Ears, nose, mouth, throat: DENIES: Hearing loss, Vertigo, Nasal discharge, Oral lesions, Throat pain, Hoarseness, Ear Pain Respiratory: DENIES: Apneas, Cough, Snoring, Wheezing, Hemoptysis, Sputum production Cardiovascular: COMPLAINS OF: Chest pain, Palpitations, Dyspnea on Exertion, Lower Extremity Edema, DENIES: Syncope, PND, Orthopnea, Claudication Gastrointestinal: DENIES: Abdominal pain, Black stools, Bloody stools, Constipation, Diarrhea, Nausea Musculoskeletal: DENIES: Joint pain, Muscle aches, Stiffness Neurologic: DENIES: Abnormal gait, Headache, Localized weakness, Paresthesias Psychiatric: COMPLAINS OF: Anxiety, DENIES: Confusion, Mood changes, Depression , Hallucinations Past Family Social History Past Medical History COPD, dyslipidemia, osteoarthritis, cervicalgia, sciatica, thoracic compression fracture 2 Past Surgical History Tonsillectomy at 18 months of age Allergies: Coded Allergies: Sulfa (Sulfonamide Antibiotics) (Verified Allergy, Severe, Rash, 08/15/17) Family History Coronary artery disease in both grandfathers Social History Social alcohol use, 1 beer per day Quit smoking 6 years ago (COPD) Physical Exam Vital Signs Vital Signs Date Time Temp Pulse Resp B/P (MAP) Pulse Ox O2 Delivery O2 Flow Rate FiO2 08/15/17 14:14 88 18 136/80 (98) 97 08/15/17 14:13 88 18 144/86 (105) 97 Room Air 136/80 (98) 08/15/17 12:21 98.2 88 18 132/71 (91) 96 Room Air 08/15/17 11:59 98.3 100 24 178/81 (113) 95 Physical Exam GENERAL: This is a well-nourished, well-developed patient, in no apparent distress. SKIN: No rashes, ecchymoses or lesions. Cool and dry. HEAD: Atraumatic. Normocephalic. No temporal or scalp tenderness. EYES: Pupils equal round and reactive. Extraocular motions intact. No scleral icterus. No injection or drainage. ENT: Nose without bleeding, purulent drainage or septal hematoma. Throat without erythema, tonsillar hypertrophy or exudate. Uvula midline. Airway patent. NECK: Trachea midline. No JVD or lymphadenopathy. Supple, nontender, no meningeal signs. CARDIOVASCULAR: Regular rate and rhythm without murmurs, gallops, or rubs. RESPIRATORY: Clear to auscultation. Breath sounds equal bilaterally. No wheezes , rales, or rhonchi. GASTROINTESTINAL: Abdomen soft, non-tender, nondistended. No hepato-splenomegaly , or palpable masses. No guarding. MUSCULOSKELETAL: Extremities without clubbing, cyanosis, or edema. No joint tenderness, effusion, or edema noted. No calf tenderness. Negative Homans sign bilaterally. NEUROLOGICAL: Awake and alert. Cranial nerves II through XII intact. Motor and sensory grossly within normal limits. Five out of 5 muscle strength in all muscle groups. Normal speech. Laboratory Laboratory Tests Test 08/15/17 12:15 White Blood Count 5.0 Red Blood Count 4.12 Hemoglobin 13.1 Hematocrit 38.3 Mean Corpuscular Volume 93.0 Mean Corpuscular Hemoglobin 31.9 Mean Corpuscular Hemoglobin Concent 34.3 Red Cell Distribution Width 14.1 Platelet Count 238 Mean Platelet Volume 8.5 Neutrophils (%) (Auto) 60.9 Lymphocytes (%) (Auto) 22.0 Monocytes (%) (Auto) 16.3 Eosinophils (%) (Auto) 0.3 Basophils (%) (Auto) 0.5 Neutrophils # (Auto) 3.1 Lymphocytes # (Auto) 1.1 Monocytes # (Auto) 0.8 Eosinophils # (Auto) 0.0 Basophils # (Auto) 0.0 CBC Comment DIFF FINAL Differential Comment Prothrombin Time 11.6 Prothromb Time International Ratio 1.1 Activated Partial Thromboplast Time 29.3 Blood Urea Nitrogen 10 Creatinine 0.91 Random Glucose 82 Calcium Level 9.1 Magnesium Level 2.1 Sodium Level 138 Potassium Level 4.1 Chloride Level 104 Carbon Dioxide Level 27.0 Anion Gap 7 Estimat Glomerular Filtration Rate 82 Total Creatine Kinase 65 Troponin I LESS THAN 0.02 Result Diagram: 08/15/17 1215 08/15/17 1215 Caprin VTE Risk Assessment Caprin VTE Risk Assessment: Mod/High Risk (score >= 2) Caprini Risk Assessment Model Point Value = 1 Point Value = 2 Point Value = 3 Point Value = 5 Age 41-60 Minor surgery BMI > 25 kg/m2 Swollen legs Varicose veins or History of unexplained or recurrent spontaneous Oral contraceptives or hormone replacement Sepsis (< 1 month) Serious lung disease, including pneumonia (< 1 month) Abnormal pulmonary function Acute myocardial infarction Congestive heart failure (< 1 month) History of inflammatory bowel disease Medical patient at bed rest Age 61-74 Arthroscopic surgery Major open surgery (> 45 min) Laparoscopic surgery (> 45 min) Malignancy Confined to bed (> 72 hours) Immobilizing plaster cast Central venous access Age >= 75 History of VTE Family history of VTE Factor V Leiden Prothrombin [id number] Lupus anticoagulant Anticardiolipin antibodies Elevated serum homocysteine Heparin-induced thrombocytopenia Other congenital or acquired thrombophilia Stroke (< 1 month) Elective arthroplasty Hip, pelvis, or leg fracture Acute spinal cord injury (< 1 month) Prophylaxis Regimen Total Risk Factor Score Risk Level Prophylaxis Regimen 0-1 Low Early ambulation 2 Moderate Order ONE of the following: *Sequential Compression Device (SCD) *Heparin 5000 units SQ BID 3-4 Higher Order ONE of the following medications: *Heparin 5000 units SQ TID *Enoxaparin/Lovenox 40 mg SQ daily (WT < 150 kg, CrCl > 30 mL/min) *Enoxaparin/Lovenox 30 mg SQ daily (WT < 150 kg, CrCl > 10-29 mL/min) *Enoxaparin/Lovenox 30 mg SQ BID (WT < 150 kg, CrCl > 30 mL/min) AND/OR *Sequential Compression Device (SCD) 5 or more Highest Order ONE of the following medications: *Heparin 5000 units SQ TID (Preferred with Epidurals) *Enoxaparin/Lovenox 40 mg SQ daily (WT < 150 kg, CrCl > 30 mL/min) *Enoxaparin/Lovenox 30 mg SQ daily (WT < 150 kg, CrCl > 10-29 mL/min) *Enoxaparin/Lovenox 30 mg SQ BID (WT < 150 kg, CrCl > 30 mL/min) AND *Sequential Compression Device (SCD) Assessment and Plan Problem List: (1) Chest pain ICD Code: R07.9 - Chest pain, unspecified (2) Atrial fibrillation ICD Code: I48.91 - Unspecified atrial fibrillation Assessment and Plan Atypical chest pain Overall pattern is compelling for high risk New onset of episodic A. fib beginning last June and associated with chest pain Persistent recurrent chest pain lasting 5-25 seconds associated with arm tingling, dyspnea on exertion Cardiology (Dr. Hanna) requests admission for planned heart catheterization Patient says he has been currently chest pain-free since 10 AM Continue oxygen, nitroglycerin, aspirin, morphine as needed Taper Xarelto for planned heart cath Begin heparin for prophylaxis h/o atrial fibrillation Patient is currently sinus rhythm Resume Xarelto following heart catheterization Monitor on telemetry for recurrence h/o COPD Patient denies any current episodes Lungs are clear on exam We will add treatment if necessary DVT prophylaxis Heparin Tristian Melendez MD August 15, 2017 16:46
--- NOTE | 2017-08-15 16:53 | MB ---
cc: Marcos Hanna MD DATE: 08/15/2017 HISTORY OF PRESENT ILLNESS: Gopi is a very pleasant 72-year-old gentleman who presents to the emergency room complaining of left-sided chest pain that he describes as a clinical discomfort. He states that it is mild. He is on Xarelto for atrial fibrillation with RVR. He has a history of COPD, anxiety, schizophrenia and GERD. He otherwise denies any fevers, chills, cough, GI or bleeding, PND, orthopnea, syncope or dizziness. He smokes marijuana daily. He denies tobacco use. He was scheduled to followup with focusing machine operator after discharge, but did not do this. PAST MEDICAL HISTORY: Per History Of Present Illness. He also has a history of arthritis, skin cancer, tonsillectomy. SOCIAL HISTORY: He drinks 4-6 drinks a day. Smokes 2 packs of cigarettes a day. Smokes marijuana sometimes. ALLERGIES: SULFA. MEDICATIONS PRIOR TO ADMISSION: 1. Pantoprazole 40 mg daily. 2. Aspirin 81 mg daily. 3. Cardizem-CD 180 mg daily. 4. Spiriva. 5. Xarelto 20 mg daily. 6. Atorvastatin 20 mg at bedtime. 7. Valium 10 mg daily. MEDICATIONS IN THE HOSPITAL: None. PHYSICAL EXAMINATION: VITAL SIGNS: Blood pressure 144/86, pulse 88, respiratory rate 18, temperature 98.2, sat 97% on room air. GENERAL: He is alert and oriented x 3, in no acute distress. NECK: Supple. No JVD. No bruit. CARDIOVASCULAR: S1, S2. No murmurs, rubs or gallops. LUNGS: Clear to auscultation bilaterally. ABDOMEN: Soft, nontender, nondistended with positive bowel sounds. EXTREMITIES: No extremity edema. Chest x-ray shows no acute disease. EKG: Normal sinus rhythm at 90 beats per minute, otherwise normal. LABORATORY: White count 5.0, hemoglobin 13.1, hematocrit 38.3, platelet count 238. Sodium 138, potassium 4.1, chloride 104, bicarbonate 27.0, BUN 10, creatinine 0.91. Troponin less than 0.02. INR 1.1. DIAGNOSES: 1. Unstable angina. 2. [place] [employer] class IV angina. 3. Atrial fibrillation. 4. Schizophrenia. 5. Tobacco abuse. 6. Alcohol abuse. 7. Noncompliance with medical treatment. PLAN: 1. Chronic obstructive pulmonary disease. 2. Gastroesophageal reflux disease. At this point in time, due to the patient's recurrent admissions for chest pain and multiple cardiac risk factors, I do think that left heart catheterization is medically necessary. I have recommended left heart catheterization to the patient. The patient agrees. I have informed him that the risk of heart catheterization and PCI is a 5-10% chance of , stroke, heart attack, bleeding, infection, need for bypass surgery, surgery, dialysis, blood transfusion, bleeding, infection, anaphylaxis and arrhythmia. The patient understands and consents to proceed with the procedure. We will hold Xarelto today and plan for left heart catheterization on 08/17/2017. I also recommend continuing to trend the troponins. MD TOMÁS Isaacs/SB , 04:07 PM , 04:53 PM
[2017-08-15] MEDS ORDERED: MORPHINE SULFATE 4 MG/ML INJ SQ PRN (18:00)
[2017-08-15] MEDS: HEPARIN SODIUM - SQ 10,000 UNITS/ML VIAL SQ SCH (18:00)
[2017-08-15] MEDS ORDERED: DIAZ10 PO (18:17)
[2017-08-15] MEDS ORDERED: [UNRECOGNIZED DRUG - OTHER] INH SCH (21:00)
[2017-08-15] MEDS ORDERED: FORMOTEROL INH SCH (21:00)
[2017-08-15] MEDS ORDERED: BUDESONIDE INH SCH (21:00)
[2017-08-15] MEDS: ATORVASTATIN 40 MG TAB PO SCH (21:04)
[2017-08-15] MEDS: SODIUM CHLORIDE 0.9% FLUSH 10 ML FLUSH IV FLUSH SCH (21:04)
[2017-08-15] MEDS: FAMOTIDINE 20 MG TAB PO SCH (21:04)
[2017-08-15] MEDS: BUDESONIDE-FORMOTEROL 160/4.5 MCG INHALER INH SCH (21:04)
--- NOTE | 2017-08-15 21:20 | RADRPT ---
EXAM DATE/TIME: 08/15/2017 20:31 [facility] COMPARISON: No previous studies available for comparison. INDICATIONS : Transient ischemic attack. MEDICAL HISTORY : Chronic obstructive pulmonary disease. Arthritis. Schizophrenia. Arthritis. Anxiety. Skin cancer. SURGICAL HISTORY : Tonsillectomy. ENCOUNTER: Initial ACUITY: 1 day PAIN SCORE: 0/10 LOCATION: Bilateral neck PEAK SYSTOLIC VELOCITIES (cm/sec): ICA/CCA RATIO: Right: 0.5 Left: 1.1 ICA: Right: 77 Left: 96 CCA: Right: 145 Left: 85 ECA: Right: 130 Left: 152 VERTEBRAL: Right: 85 antegrade Left: 63 antegrade Elevated flow velocities and ICA/CCA ratios have been found to correlate with increased degrees of vessel stenosis, calculated as percentage of diameter relative to a normal segment of distal ICA/CCA FINDINGS: RIGHT CAROTID: No significant stenosis is visualized. The waveforms are within normal limits. LEFT CAROTID: No significant stenosis is visualized. The waveforms are within normal limits. VERTEBRAL ARTERIES: Antegrade flow is seen in both vertebral arteries. MISCELLANEOUS: None. CONCLUSION: No hemodynamically significant stenosis in either carotid artery. Ney Allen MD on August 15, 2017 at 21:18 Board Certified Radiologist. This report was verified electronically.
[2017-08-16] VITALS (16 sets, daily range): BP systolic 131–168; BP diastolic 66–83; PULSE 64–97; RESP 16–17; TEMP 98–98.2; O2SAT 90–98
[2017-08-16] MEDS: HEPARIN SODIUM - SQ 10,000 UNITS/ML VIAL SQ SCH ×2 (06:00→18:30)
[2017-08-16] MEDS: DILTIAZEM-CD 180 MG CAP ER PO SCH (08:12)
[2017-08-16] MEDS: BUDESONIDE-FORMOTEROL 160/4.5 MCG INHALER INH SCH ×2 (08:13→22:12)
[2017-08-16] MEDS: SODIUM CHLORIDE 0.9% FLUSH 10 ML FLUSH IV FLUSH SCH ×2 (08:13→22:12)
[2017-08-16] MEDS: FAMOTIDINE 20 MG TAB PO SCH ×2 (08:13→22:13)
[2017-08-16] MEDS: TIOTROPIUM BROMIDE 18 MCG INH INH SCH (08:13)
[2017-08-16] MEDS: ASPIRIN EC 81 MG TABEC PO SCH (08:14)
[2017-08-16] MEDS ORDERED: DIAZEPAM 10 MG TAB PO SCH (09:00)
--- NOTE | 2017-08-16 09:00 | HHI.PR ---
Subjective Remarks Follow up for chest pain. The patient reports 2 mild episodes of left sided chest discomfort overnight that went away on its own. He denies any current chest pain. He denies any shortness of breath, but does report some mild wheezing. He states he has been told he likely has COPD in the past. He does not use any oxygen, inhalers, or nebulizer at home. He denies any fever/ chills. Denies any other medical complaints at this time. Agrees to cardiac catheterization tomorrow. Objective Vitals Vital Signs Date Time Temp Pulse Resp B/P (MAP) Pulse Ox O2 Delivery O2 Flow Rate FiO2 08/16/17 08:00 Nasal Cannula 2.00 08/16/17 07:23 98.0 97 16 168/83 (111) 96 08/16/17 05:56 98 21 08/16/17 04:03 98.0 93 16 156/74 (101) 90 08/16/17 03:50 91 08/16/17 00:00 79 08/15/17 23:28 99.0 81 16 130/71 (90) 94 08/15/17 20:25 98.3 90 16 149/67 (94) 94 08/15/17 17:26 97.9 78 18 142/77 (98) 96 08/15/17 16:42 98 21 08/15/17 14:14 88 18 136/80 (98) 97 08/15/17 14:13 88 18 144/86 (105) 97 Room Air 136/80 (98) 08/15/17 12:21 98.2 88 18 132/71 (91) 96 Room Air 08/15/17 11:59 98.3 100 24 178/81 (113) 95 Result Diagram: 08/15/17 1215 08/15/17 1215 Imaging Last Impressions Chest X-Ray 08/15/17 1206 Signed Impressions: Service Date/Time: Tuesday, August 15, 2017 12:33 - CONCLUSION: No acute disease. Maik Cheung MD Carotid Artery Ultrasound 08/15/17 0000 Signed Impressions: Service Date/Time: Tuesday, August 15, 2017 20:31 - CONCLUSION: No hemodynamically significant stenosis in either carotid artery. Ney Allen MD Objective Remarks GENERAL: Well-nourished, well-developed pleasant male patient in NAD. SKIN: Warm and dry. No rash. HEENT: Normocephalic. Atraumatic. Pupils equal and round. Mucous membranes pink and moist. CARDIOVASCULAR: Regular rate and rhythm. No murmur appreciated. RESPIRATORY: No accessory muscle use. Mild end expiratory wheezing at the bases , otherwise clear to auscultation. Breath sounds equal bilaterally. GASTROINTESTINAL: Abdomen soft, non-tender, nondistended. Normoactive bowel sounds x4. MUSCULOSKELETAL: No obvious deformities. Extremities without clubbing, cyanosis , or edema. NEUROLOGICAL: Awake and alert. No obvious cranial nerve deficits. Motor grossly within normal limits. Normal speech. PSYCHIATRIC: Appropriate mood and affect; insight and judgment normal. Medications and IVs Current Medications Medications (Trade) Dose Ordered Sig/Joe Route Start Time Stop Time Status Last Admin (NS Flush) 2 ml UNSCH PRN IV FLUSH 08/15/17 16:45 (NS Flush) 2 ml BID IV FLUSH 08/15/17 21:00 08/16/17 08:13 (Narcan Inj) 0.4 mg UNSCH PRN IV PUSH 08/15/17 16:45 (Milk Of Magnesia Liq) 30 ml Q12H PRN PO 08/15/17 16:45 (Senokot) 17.2 mg Q12H PRN PO 08/15/17 16:45 (Nitrostat Sl) 0.4 mg Q5M PRN SL 08/15/17 16:45 (Pepcid) 20 mg BID PO 08/15/17 21:00 08/16/17 08:13 (Xanax) 0.25 mg TID PRN PO 08/15/17 16:45 (Heparin Inj) 5,000 units Q12H SQ 08/15/17 18:00 (Ecotrin Ec) 81 mg DAILY PO 08/16/17 09:00 08/16/17 08:14 (Lipitor) 40 mg HS PO 08/15/17 21:00 08/15/17 21:04 (Valium) 20 mg DAILY PO 08/16/17 09:00 08/16/17 08:12 (Cardizem Cd) 180 mg DAILY PO 08/16/17 09:00 08/16/17 08:12 (Spiriva Inh) 18 mcg DAILY INH 08/16/17 09:00 08/16/17 08:13 (Morphine Inj) 2 mg Q4H PRN SQ 08/15/17 18:00 (Symbicort 160-4.5 Mcg Inh) 1 puff Q12HR INH 08/15/17 21:00 08/16/17 08:13 A/P Problem List: (1) Chest pain ICD Code: R07.9 - Chest pain, unspecified (2) Atrial fibrillation ICD Code: I48.91 - Unspecified atrial fibrillation Assessment and Plan 72-year-old male with history of chest pain, COPD, HLD, osteoarthritis, sciatica , cervicalgia, thoracic compression fracture 2, presents with intermittent chest pains 1.5 months Chest pain: Patient with persistent recurrent episodes of chest pain lasting less than 1 minute with associated left arm tingling and dyspnea -ACS ruled out with negative cardiac enzymes 3 and EKG without acute ischemic changes -Continue aspirin, statin, nitro, oxygen, morphine as needed -Start on low dose BB with hold parameters -Monitor on telemetry -Consulted cardiology, seen by Dr. Hanna, plans for cardiac catheterization on Thursday 08/17 Paroxysmal atrial fibrillation: Diagnosed last June. -Holding patient's Xarelto for upcoming cardiac catheterization -Started on heparin sq for now -Continue patient's Cardizem CD 180 mg daily -Patient is currently in sinus rhythm -Monitor on telemetry -Plan to restart Xarelto after cardiac cath COPD: with occasional mild wheezing on exam. Does not wear oxygen at home. -We will give DuoNeb 1 now, and continue on duo nebs twice daily -Continue patient's Symbicort and Spiriva -Patient should be given prescription for rescue inhaler at discharge DVT Prophylaxis: heparin sq (patient's xarelto on hold for upcoming procedure) Discharge Planning Plan for cardiac catheterization tomorrow. Further disposition to follow. Doris Ferrari PA-C August 16, 2017 9:00 am
--- NOTE | 2017-08-16 10:36 | PD.CARD.PN ---
Subjective Subjective Remarks alert in nad Objective Medications Current Medications Medications (Trade) Dose Ordered Sig/Joe Route Start Time Stop Time Status Last Admin (NS Flush) 2 ml UNSCH PRN IV FLUSH 08/15/17 16:45 (NS Flush) 2 ml BID IV FLUSH 08/15/17 21:00 08/16/17 08:13 (Narcan Inj) 0.4 mg UNSCH PRN IV PUSH 08/15/17 16:45 (Milk Of Magnesia Liq) 30 ml Q12H PRN PO 08/15/17 16:45 (Senokot) 17.2 mg Q12H PRN PO 08/15/17 16:45 (Nitrostat Sl) 0.4 mg Q5M PRN SL 08/15/17 16:45 (Pepcid) 20 mg BID PO 08/15/17 21:00 08/16/17 08:13 (Xanax) 0.25 mg TID PRN PO 08/15/17 16:45 (Heparin Inj) 5,000 units Q12H SQ 08/15/17 18:00 (Ecotrin Ec) 81 mg DAILY PO 08/16/17 09:00 08/16/17 08:14 (Lipitor) 40 mg HS PO 08/15/17 21:00 08/15/17 21:04 (Valium) 20 mg DAILY PO 08/16/17 09:00 08/16/17 08:12 (Cardizem Cd) 180 mg DAILY PO 08/16/17 09:00 08/16/17 08:12 (Spiriva Inh) 18 mcg DAILY INH 08/16/17 09:00 08/16/17 08:13 (Morphine Inj) 2 mg Q4H PRN SQ 08/15/17 18:00 (Symbicort 160-4.5 Mcg Inh) 1 puff Q12HR INH 08/15/17 21:00 08/16/17 08:13 Vital Signs / I&O Vital Signs Date Time Temp Pulse Resp B/P (MAP) Pulse Ox O2 Delivery O2 Flow Rate FiO2 08/16/17 08:20 88 08/16/17 08:00 Nasal Cannula 2.00 08/16/17 07:23 98.0 97 16 168/83 (111) 96 08/16/17 05:56 98 21 08/16/17 04:03 98.0 93 16 156/74 (101) 90 08/16/17 03:50 91 08/16/17 00:00 79 08/15/17 23:28 99.0 81 16 130/71 (90) 94 08/15/17 20:25 98.3 90 16 149/67 (94) 94 08/15/17 17:26 97.9 78 18 142/77 (98) 96 08/15/17 16:42 98 21 08/15/17 14:14 88 18 136/80 (98) 97 08/15/17 14:13 88 18 144/86 (105) 97 Room Air 136/80 (98) 08/15/17 12:21 98.2 88 18 132/71 (91) 96 Room Air 08/15/17 11:59 98.3 100 24 178/81 (113) 95 Laboratory GENERAL: SKIN: Warm and dry. HEAD: Normocephalic. EYES: No scleral icterus. No injection or drainage. NECK: Supple, trachea midline. No JVD or lymphadenopathy. CARDIOVASCULAR: Regular rate and rhythm without murmurs, gallops, or rubs. RESPIRATORY: Breath sounds equal bilaterally. No accessory muscle use. GASTROINTESTINAL: Abdomen soft, non-tender, nondistended. MUSCULOSKELETAL: No cyanosis, or edema. BACK: Nontender without obvious deformity. No CVA tenderness. Laboratory Tests Test 08/15/17 12:15 08/15/17 18:45 08/16/17 00:52 White Blood Count 5.0 TH/MM3 Red Blood Count 4.12 MIL/MM3 Hemoglobin 13.1 GM/DL Hematocrit 38.3 % Mean Corpuscular Volume 93.0 FL Mean Corpuscular Hemoglobin 31.9 PG Mean Corpuscular Hemoglobin Concent 34.3 % Red Cell Distribution Width 14.1 % Platelet Count 238 TH/MM3 Mean Platelet Volume 8.5 FL Neutrophils (%) (Auto) 60.9 % Lymphocytes (%) (Auto) 22.0 % Monocytes (%) (Auto) 16.3 % Eosinophils (%) (Auto) 0.3 % Basophils (%) (Auto) 0.5 % Neutrophils # (Auto) 3.1 TH/MM3 Lymphocytes # (Auto) 1.1 TH/MM3 Monocytes # (Auto) 0.8 TH/MM3 Eosinophils # (Auto) 0.0 TH/MM3 Basophils # (Auto) 0.0 TH/MM3 CBC Comment DIFF FINAL Differential Comment Prothrombin Time 11.6 SEC Prothromb Time International Ratio 1.1 RATIO Activated Partial Thromboplast Time 29.3 SEC Blood Urea Nitrogen 10 MG/DL Creatinine 0.91 MG/DL Random Glucose 82 MG/DL Calcium Level 9.1 MG/DL Magnesium Level 2.1 MG/DL Sodium Level 138 MEQ/L Potassium Level 4.1 MEQ/L Chloride Level 104 MEQ/L Carbon Dioxide Level 27.0 MEQ/L Anion Gap 7 MEQ/L Estimat Glomerular Filtration Rate 82 ML/MIN Total Creatine Kinase 65 U/L Troponin I LESS THAN 0.02 NG/ML LESS THAN 0.02 NG/ML LESS THAN 0.02 NG/ML Imaging Last 24 hours Impressions Chest X-Ray 08/15/17 1206 Signed Impressions: Service Date/Time: Tuesday, August 15, 2017 12:33 - CONCLUSION: No acute disease. Maik Cheung MD Assessment and Plan Problem List: (1) Angina at rest ICD Codes: I20.8 - Other forms of angina pectoris (2) Schizophrenia ICD Codes: F20.9 - Schizophrenia, unspecified (3) COPD (chronic obstructive pulmonary disease) ICD Codes: J44.9 - Chronic obstructive pulmonary disease, unspecified (4) Atrial fibrillation ICD Codes: I48.91 - Unspecified atrial fibrillation (5) Chest pain ICD Codes: R07.9 - Chest pain, unspecified Assessment and Plan 1.) [place] - c is medically necessary due to chest pain at rest, [facility], ccs class 4 angina, xarelto held 08/15/17 Marcos Hanna MD August 16, 2017 10:36
[2017-08-16] MEDS ORDERED: RESP: ALBUTEROL 2.5 MG/IPRATROPIUM 0.5 MG NEB (SCH) NEB ONE (14:00)
[2017-08-16] MEDS ORDERED: METOPROLOL TARTRATE 25 MG TAB PO PRN (14:15)
[2017-08-16] MEDS ORDERED: LACTATED RINGER'S 1000 ML IV PRN (14:15)
[2017-08-16] MEDS ORDERED: POVIDONE IODINE 5% (ANTISEPSIS KIT) 4 APPLICATIONS EACH NARE PRN (14:15)
[2017-08-16] MEDS ORDERED: SODIUM CHLORID 0.9% 500 ML IV PRN (14:15)
[2017-08-16] MEDS ORDERED: CHLORHEXIDINE GLUCONATE 2 % 1 PACK (2 CLOTHS) TOPICAL PRN (14:15)
--- NOTE | 2017-08-16 14:24 | EKG ---
Date Performed: 08/15/2017 Time Performed: 15:23:56 PTAGE: 72 years EKG: Sinus rhythm NORMAL ECG Since the PREVIOUS TRACING , no significant change noted PREVIOUS TRACIN08/15/2017 12.09 DOCTOR: Clarice Nicolas Interpretating Date/Time 08/16/2017 14:19:29
--- NOTE | 2017-08-16 14:24 | EKG ---
Date Performed: 08/15/2017 Time Performed: 23:32:52 PTAGE: 72 years EKG: Sinus rhythm NORMAL ECG Since the PREVIOUS TRACING , no significant change noted PREVIOUS TRACIN08/15/2017 15.23 DOCTOR: Clarice Nicolas Interpretating Date/Time 08/16/2017 14:19:21
--- NOTE | 2017-08-16 14:25 | EKG ---
Date Performed: 08/15/2017 Time Performed: 12:09:01 PTAGE: 72 years EKG: Sinus rhythm NORMAL ECG Since the PREVIOUS TRACING , no significant change noted PREVIOUS TRACING DOCTOR: Clarice Nicolas Interpretating Date/Time 08/16/2017 14:19:42
[2017-08-16] MEDS: RESP: ALBUTEROL 2.5 MG/IPRATROPIUM 0.5 MG NEB (SCH) NEB (19:24)
[2017-08-16] MEDS ORDERED: DIAZEPAM 10 MG TAB PO ONE (22:00)
[2017-08-16] MEDS: ATORVASTATIN 40 MG TAB PO SCH (22:13)
[2017-08-16] MEDS: METOPROLOL TARTRATE 25 MG TAB PO SCH (22:13)
[2017-08-17] VITALS (7 sets, daily range): BP systolic 118–131; BP diastolic 59–79; PULSE 80–97; RESP 17–20; TEMP 98–98.1; O2SAT 95–98
[2017-08-17] MEDS: HEPARIN SODIUM - SQ 10,000 UNITS/ML VIAL SQ SCH (06:49)
[2017-08-17] MEDS ORDERED: DIAZ10TA PO (07:42)
[2017-08-17] MEDS: RESP: ALBUTEROL 2.5 MG/IPRATROPIUM 0.5 MG NEB (SCH) NEB (07:46)
[2017-08-17] MEDS ORDERED: DIAZEPAM 10 MG TAB PO PRN (08:15)
[2017-08-17] MEDS: DILTIAZEM-CD 180 MG CAP ER PO SCH (08:27)
[2017-08-17] MEDS: ASPIRIN EC 81 MG TABEC PO SCH (08:27)
[2017-08-17] MEDS: BUDESONIDE-FORMOTEROL 160/4.5 MCG INHALER INH SCH (08:27)
[2017-08-17] MEDS: SODIUM CHLORIDE 0.9% FLUSH 10 ML FLUSH IV FLUSH SCH (08:28)
[2017-08-17] MEDS: METOPROLOL TARTRATE 25 MG TAB PO SCH (08:28)
[2017-08-17] MEDS: TIOTROPIUM BROMIDE 18 MCG INH INH SCH (08:29)
[2017-08-17] MEDS: FAMOTIDINE 20 MG TAB PO SCH (08:29)
--- NOTE | 2017-08-17 08:52 | HHI.PR ---
Subjective Remarks Follow up for chest pain. The patient reports constant left shoulder aches and pains overnight which he attributes to the uncomfortable hospital bed. Denies any specific chest pains. He does report increasing anxiety this morning, mostly due to the upcoming procedure. He is requesting his valium. He otherwise denies any other medical complaints including no cough, shortness of breath, abdominal pain, nausea/vomiting, or diarrhea. Objective Vitals Vital Signs Date Time Temp Pulse Resp B/P (MAP) Pulse Ox O2 Delivery O2 Flow Rate FiO2 08/17/17 07:46 98 Nasal Cannula 2.50 08/17/17 07:36 98.1 87 18 122/79 (93) 95 08/17/17 04:17 85 08/17/17 03:35 98.1 80 17 131/66 (87) 95 08/16/17 23:50 64 08/16/17 23:48 98.0 77 17 131/71 (91) 98 08/16/17 21:00 98 Nasal Cannula 2.00 08/16/17 20:15 90 08/16/17 19:53 98.1 86 16 139/72 (94) 96 08/16/17 19:20 98 Nasal Cannula 2.00 08/16/17 16:15 82 08/16/17 16:10 98 Nasal Cannula 2.00 08/16/17 14:58 98.0 81 16 145/70 (95) 98 08/16/17 12:15 98.2 87 16 132/66 (88) 96 08/16/17 12:02 76 I/O 08/16/17 08/16/17 08/16/17 08/17/17 08/17/17 08/17/17 07:00 15:00 23:00 07:00 15:00 23:00 Intake Total 500 ml Balance 500 ml Intake Oral 500 ml # Voids 4 Result Diagram: 08/15/17 1215 08/15/17 1215 Imaging Last Impressions Chest X-Ray 08/15/17 1206 Signed Impressions: Service Date/Time: Tuesday, August 15, 2017 12:33 - CONCLUSION: No acute disease. Maik Cheung MD Carotid Artery Ultrasound 08/15/17 0000 Signed Impressions: Service Date/Time: Tuesday, August 15, 2017 20:31 - CONCLUSION: No hemodynamically significant stenosis in either carotid artery. Ney Allen MD Objective Remarks GENERAL: Well-nourished, well-developed pleasant male patient in NAD. SKIN: Warm and dry. No rash. HEENT: Normocephalic. Atraumatic. Pupils equal and round. Mucous membranes pink and moist. CARDIOVASCULAR: Regular rate and rhythm. No murmur appreciated. RESPIRATORY: No accessory muscle use. Mild end expiratory wheezing at the bases , otherwise clear to auscultation. Breath sounds equal bilaterally. GASTROINTESTINAL: Abdomen soft, non-tender, nondistended. Normoactive bowel sounds x4. MUSCULOSKELETAL: No obvious deformities. Extremities without clubbing, cyanosis , or edema. NEUROLOGICAL: Awake and alert. No obvious cranial nerve deficits. Motor grossly within normal limits. Normal speech. PSYCHIATRIC: Anxious mood; insight and judgment normal. Medications and IVs Current Medications Medications (Trade) Dose Ordered Sig/Joe Route Start Time Stop Time Status Last Admin (NS Flush) 2 ml UNSCH PRN IV FLUSH 08/15/17 16:45 (NS Flush) 2 ml BID IV FLUSH 08/15/17 21:00 08/17/17 08:28 (Narcan Inj) 0.4 mg UNSCH PRN IV PUSH 08/15/17 16:45 (Milk Of Magnesia Liq) 30 ml Q12H PRN PO 08/15/17 16:45 (Senokot) 17.2 mg Q12H PRN PO 08/15/17 16:45 (Nitrostat Sl) 0.4 mg Q5M PRN SL 08/15/17 16:45 (Pepcid) 20 mg BID PO 08/15/17 21:00 08/17/17 08:29 (Heparin Inj) 5,000 units Q12H SQ 08/15/17 18:00 08/17/17 06:49 (Ecotrin Ec) 81 mg DAILY PO 08/16/17 09:00 08/17/17 08:27 (Lipitor) 40 mg HS PO 08/15/17 21:00 08/16/17 22:13 (Cardizem Cd) 180 mg DAILY PO 08/16/17 09:00 08/17/17 08:27 (Spiriva Inh) 18 mcg DAILY INH 08/16/17 09:00 08/17/17 08:29 (Morphine Inj) 2 mg Q4H PRN SQ 08/15/17 18:00 (Symbicort 160-4.5 Mcg Inh) 1 puff Q12HR INH 08/15/17 21:00 08/17/17 08:27 (Duoneb Neb) 1 ampule Q12HR NEB NEB 08/16/17 20:00 08/17/17 07:46 (Lopressor) 25 mg Q12HR PO 08/16/17 21:00 08/16/17 22:13 Lactated Ringer's 1,000 ml @ 30 mls/hr Q24H PRN IV 08/16/17 14:15 08/19/17 14:14 08/17/17 08:35 Sodium Chloride 500 ml @ 30 mls/hr [id number] PRN IV 08/16/17 14:15 08/19/17 14:14 (Lopressor) 25 mg STAGE BUILDER PRN PO 08/16/17 14:15 08/19/17 14:14 (Betadine 5% Antisepsis Kit) 1 applic STAGE BUILDER PRN EACH NARE 08/16/17 14:15 08/19/17 14:14 (Chlorhexidine 2% Cloth) 3 pack STAGE BUILDER PRN TOPICAL 08/16/17 14:15 08/19/17 14:14 08/17/17 08:36 (Valium) 10 mg BID PRN PO 08/17/17 08:15 08/17/17 08:33 A/P Problem List: (1) Chest pain ICD Code: R07.9 - Chest pain, unspecified (2) Atrial fibrillation ICD Code: I48.91 - Unspecified atrial fibrillation Assessment and Plan 72-year-old male with history of chest pain, COPD, HLD, osteoarthritis, sciatica , cervicalgia, thoracic compression fracture 2, presents with intermittent chest pains 1.5 months Chest pain: Patient with persistent recurrent episodes of chest pain lasting less than 1 minute with associated left arm tingling and dyspnea -ACS ruled out with negative cardiac enzymes 3 and EKG without acute ischemic changes -Continue aspirin, statin, nitro, oxygen, morphine as needed -Start on low dose BB with hold parameters -Monitor on telemetry -Consulted cardiology, seen by Dr. Hanna, plans for cardiac catheterization today 08/17 Paroxysmal atrial fibrillation: Diagnosed last June. -Holding patient's Xarelto for upcoming cardiac catheterization -Started on heparin sq for now -Continue patient's Cardizem CD 180 mg daily -Patient is currently in sinus rhythm -Monitor on telemetry -Plan to restart Xarelto after cardiac cath COPD: with occasional mild wheezing on exam. Does not wear oxygen at home. -Continue on duo nebs twice daily -Continue patient's Symbicort and Spiriva -Patient should be given prescription for rescue inhaler at discharge Anxiety: patient has anxiety at baseline, with acute worsening with upcoming procedure -continue patient's valium 10mg bid prn -give IV ativan prn for severe anxiety DVT Prophylaxis: heparin sq (patient's xarelto on hold for upcoming procedure) Discharge Planning Plan for cardiac catheterization today. Further disposition to follow. Doris Ferrari PA-C August 17, 2017 8:52 am
[2017-08-17] MEDS ORDERED: LORazepam 2 MG/ML VIAL IV PUSH ONE (11:45)
[2017-08-17] MEDS ORDERED: IOHEXOL 350 MG/ML 50 ML BTL (for Cath Lab) OTHER ONE (14:22)
[2017-08-17] MEDS ORDERED: MIDAZOLAM HCL 2 MG/2 ML VIAL ONE ×2 (14:27→14:51)
[2017-08-17] MEDS ORDERED: HEPARIN-NS/PF FLUSH BAG 2,000 ML IV FLUSH ONE (14:27)
--- NOTE | 2017-08-17 15:33 | CATHPROC ---
Advanced Telemetry HIS Report Study Information Study Number Admission Scheduled Start Study Start [id number] Aug 15 2017 1:44PM 08/17/2017 Aug 17 2017 2:18PM [place] Service Cardiac Catheterization Admit Source Facility Department Emergency department [facility] - Sales Service Rep Physician and Clinical Staff Initial Marcos Mariee Director Of Food And Nutrition Services Addy Wiley RN Recorder Kiera De Leon,DREW TECH2 Scrub Hosterman, Maikel,RT(R) Procedures Performed Procedure Location (Site) Vessel Name Coronary Angiograms LCA Left Coronary LV Gram-hand inj. LV LV Ventricle Equipment Time Net Programmer Description Size Mfg Part Number Used/Scraped TRANSDUCER, TRUWAVE [id number] 14:19 HART GARCIA * Used W/STOCKCOCK *[id number] [id number] *[id number] [id number] *[id number] *[id number] *[id number] 14:19 MEDLINE INDUSTRIES PACK, CCL CUSTOM * Used *[id number] 14:19 PROTEGO PACER PEN, SKIN DUAL W/ RULER * Used *[id number] 14:19 Funbuilt WIRE, 3MMJ .035 180CM 180CM Used *[id number] 14:19 NAMIC MANIFOLD, 4 PORT * Used *[id number] 14:19 NYCOMED OMNIPAQUE, 350 MG, 150ML 150ML [id number] 14:19 SOMARK [employer]ations MEDICAL BLANKET,WARM AIR CCL * Used *[id number] 14:19 TERUMO MEDICAL SHEATH, FR4 TERUMO (10CM) FR 4 Used *[id number] History: Current Medications Medication Dosage/Unit Route Frequency Last Date/Time Taken XARELTO ASA CARDIZEM Statins (any) History: Allergies Allergy Reaction Sulfa (Sulfonamide Antibiotics) Rash History: Symptoms/Diagnosis Selection Items Chest pain History: Stress Tests Stress or Imaging Studies Performed No History: Arrhythmias Selection Items Atrial fibrillation History: Other Disease Selection Items Cancer Depression Gerd History: Other Current Smoker Method Packs a Day Yes Cigarettes 2 Labs Hgb (g/dl) Hct (%) RBC (MIL/MM3) WBC (l/cumm) Platelets (thousands) 11.60-17.00 35.00-51.00 4.00-5.90 4.00-11.00 150.00-450.00 13.1 38.3 4 5 238 Glucose (mg/dl) BUN (mg/dl) Creatinine (mg/dl) BUN:Creatinine (1:x) 74.00-106.00 7.00-18.00 0.50-1.30 10.00-20.00 82 10 0.9 11.1 Na (meq/l) K (meq/l) Cl (meq/l) CO2 (mmol/L) Ca (mg/dl) 136.00-145.00 3.50-5.10 98.00-107.00 21.00-32.00 8.50-10.10 138 4 104 27 9.1 PT (sec) PTT (sec) INR (PTT:PT) 9.80-11.60 24.30-30.10 0.90-1.10 11.6 29.3 1.1 Troponin I (ng/ml) CPK (u/l) CPK-MB (ng/ML) 0.02-0.05 26.00-308.00 0.50-3.60 0.02 65 Not Drawn Medication Medication Total Dose (Bolus/Oral) Medication Total Dosage/Unit 1% XYLOCAINE 20 mL FENTANYL 12.5 mcg VERSED 3 mg Medications (Bolus/Oral) Medication Time Given Dosage/Unit Administered By Reason VERSED 08/17/2017 2:47:48 PM 2 mg Inez, Addy 2 mg VERSED given in lab by Addy Wiley RN in Right Antecubital via Peripheral IV. Ordered by Marcos Fountain. FENTANYL 08/17/2017 2:48:08 PM 12.5 mcg Inez, Addy 12.5 mcg FENTANYL given in lab by Addy Wiley RN in Right Antecubital via Peripheral IV. Ordered by Marcos Hanna. 1% XYLOCAINE 08/17/2017 2:51:14 PM 20 mL Marcos Hanna 20 mL 1% XYLOCAINE given in lab by Marcos Hanna in Right Groin via Subcutaneous. Ordered by Marcos Fountain. VERSED 08/17/2017 2:53:14 PM 1 mg Inez, Addy 1 mg VERSED given in lab by Addy Wiley RN in Right Antecubital via Peripheral IV. Ordered by Marcos Fountain. Medication (Drip) Medication Time Given Dosage/Unit Concentration/Unit Diluent (ml) Solutio n IV Solutions 08/17/2017 2:28:02 PM 0 mL (IV) 500 NaCl .9 Patient arrived on IV Solutions in Right Antecubital via Peripheral IV. Pump/Drip Flow = 20 ml/hr usi ng NaCl .9. Initial Case Assessment Cardiovascular HR Rhythm NIBP Chest Pain 88 sr 138/74 0 Circulatory - Right Pulses Dorsalis Pedis Femoral 2 2 Scale (0,1,2,3,4,d) Circulatory - Left Pulses Dorsalis Pedis Femoral 2 2 Scale (0,1,2,3,4,d) Neurological State Oriented to time-place- Alert Moves all extremities person Respiration - General Respiration Rate SpO2 (%) (B/min) 20 94 Final Case Assessment Cardiovascular HR Rhythm NIBP Chest Pain 82 sr 156/86 0 Circulatory - Right Pulses Dorsalis Pedis Femoral 2 2 Scale (0,1,2,3,4,d) Circulatory - Left Pulses Dorsalis Pedis Femoral 2 2 Scale (0,1,2,3,4,d) Neurological State Oriented to time-place- Alert Moves all extremities person Respiration - General Respiration Rate SpO2 (%) (B/min) 20 92 Chronological Log Time Study Chronological Log 14:22:11 Patient arrived via Bed. 14:22:12 Patient Name, D.O.B, / Armband Verified By R.N. 14:22:13 Consent signed by the physician and the patient and verified by the Sales Service Rep staff. 14:22:14 Pre-op and post- op instructions given; patient acknowledges understanding of instructions. 14:22:15 Verbal Stimulation=2 Physical Stimulation=2 Airway=2 Respiration=2 TOTAL=8. (0=absent, 1=li mited, 2=present) 14:22:17 Presedation assessment performed by Sales Service Rep RN. 14:22:18 Patient has been NPO for More than 6Hrs. 14:22:19 Skin Breakdown-none Vitals capture started with the following parameters, Patient=Adult, Interval=5 min, Initial Pr myokgr=161 mmHg, 14:27:20 Deflation Rate=5 mmHg, Cuff placed on Left Arm 14:27:47 A # 18 IV was noted in the Antecubital (right). Grade = patent 14:28:00 HR=87 bpm, TQYE=382/74 mmhg, SpO2=94 %, Resp=17 B/min, Pain=0, Marce=10, Tolbert=2 14:28:02 Patient arrived on IV Solutions in Right Antecubital via Peripheral IV. Pump/Drip Flow = 20 ml/hr using NaCl .9. 14:28:39 Reference ECG taken 14:28:57 History and physical on the chart or being dictated. Assessment: Initial Case, HR=88 BPM, Rhythm=sr, MMKM=650/74 mmhg, Chest Pain=0 Right Pulses: Marino Ped=2, Femoral=2 14:28:58 Left Pulses: Marino Ped=2, Femoral=2 Neurological: State=Alert, Ox3, PRICE Respiration: Resp=20 B/min, SpO2=94 % 14:30:59 Bilateral groins prepped with 2% chlorhexidine, and draped after a 3 minute waiting time. 14:33:01 HR=89 bpm, UMZF=196/73 mmhg, SpO2=93.0 %, Resp=14 B/min 14:38:37 HR=87 bpm, GIWX=067/82 mmhg, SpO2=95 %, Resp=15 B/min 14:38:54 Pressure channel 1 zeroed. 14:39:11 MD paged 14:39:13 MD responded 14:43:08 HR=88 bpm, AWEP=540/49 mmhg, SpO2=94 %, Resp=12 B/min 14:46:13 MD arrived. 14:47:48 2 mg VERSED given in lab by Addy Wiley, GREER in Right Antecubital via Peripheral IV. Ordere d by Marcos Hanna. 14:48:05 HR=86 bpm, RPDC=331/78 mmhg, SpO2=95 %, Resp=13 B/min 12.5 mcg FENTANYL given in lab by Addy Wiley RN in Right Antecubital via Peripheral IV. Orde red by Cyndi, 14:48:08 Marcos. Time Out. Correct patient, correct procedure, correct physician, power injector loaded, or not loaded with contrast with 14:51:00 surgical team present. Time Out Concurred by MD and individual staff in procedure. 14:51:08 Case Start 20 mL 1% XYLOCAINE given in lab by Marcos Hanna in Right Groin via Subcutaneous. Ordered by Cyndi, 14:51:14 Marcos. 14:53:04 HR=83 bpm, PKTO=357/83 mmhg, SpO2=91.0 %, Resp=9 B/min 14:53:14 1 mg VERSED given in lab by Addy Wiley, RN in Right Antecubital via Peripheral IV. Ordere d by Marcos Hanna. 14:54:27 Access site was Right Femoral Artery. 14:54:35 A SHEATH, FR4 TERUMO (10CM) FR 4 was advanced into the Fem Art (right) using the Percutaneo us technique. A JR 4.0 INFINITI CATHETER FR 4 was advanced over a wire. OMNIPAQUE, 350 MG, 150ML 150ML was us ed for 14:54:48 injections. Recorded Pressure: LV, HR=85, Condition=Condition 1 14:55:58 (Left Ventricle) LV 135/1/10 14:56:00 The LV was manually injected with 10 cc's and visualized. OMNIPAQUE, 350 MG, 150ML 150ML us ed. Recorded Pressure: LV, Ao, HR=82, Condition=Condition 1 14:56:08 (Left Ventricle) LV 126/-5/2, (Aorta) Ao 129/65/94 14:57:55 Unable to cannulate RCA, Catheter was removed A JL 4.0 INFINITI CATHETER FR 4 was advanced over a wire. OMNIPAQUE, 350 MG, 150ML 150ML was us ed for 14:57:56 injections. 14:58:02 The LCA was injected and visualized at various angles. OMNIPAQUE, 350 MG, 150ML 150ML used . 14:58:05 HR=78 bpm, YBAR=678/72 mmhg, SpO2=94.0 %, Resp=8 B/min 14:59:19 Catheter was removed A AL 2 INFINITI CATHETER FR 4 was advanced over a wire. OMNIPAQUE, 350 MG, 150ML 150ML was used for 15:00:09 injections. 15:01:04 Unable to cannulate RCA, Catheter was removed 15:03:00 HR=85 bpm, FZRY=473/83 mmhg, SpO2=93 %, Resp=15 B/min, Marce=10 A 3DRC INFINITI CATHETER FR 4 was advanced over a wire. OMNIPAQUE, 350 MG, 150ML 150ML was used for 15:03:11 injections. 15:05:15 Case End 15:06:28 Sheath removed; pressure applied to access site. 15:08:03 HR=76 bpm, QVBA=943/84 mmhg, SpO2=93 %, Resp=15 B/min 15:13:06 HR=83 bpm, ZILC=262/86 mmhg, SpO2=93 %, Resp=11 B/min 15:18:07 HR=79 bpm, OTWM=487/86 mmhg, SpO2=90.0 %, Resp=10 B/min 15:20:09 Hemostasis obtained. 15:20:33 Sterile dressing applied to site 15:20:56 Vitals capture stopped. Assessment: Final Case, HR=82 BPM, Rhythm=sr, WJJS=220/86 mmhg, Chest Pain=0 Right Pulses: Marino Ped=2, Femoral=2 15:21:06 Left Pulses: Marino Ped=2, Femoral=2 Neurological: State=Alert, Ox3, PRICE Respiration: Resp=20 B/min, SpO2=92 % 15:21:44 No case complications noted. 15:21:46 Cine recording checked. 15:21:47 Bedside Report will be given. 15:24:34 Patient moved to bed. 15:26:38 Patient transported to DOCU. End Study - Contrast Media Used In Study Contrast Total Opened (mL) Total Used (mL) Total Wasted (mL) Omnipaque 40 40 0 End Study - Maximum Contrast Load Max Contrast Load (mL) 616.7 End Study - Radiation Exposure Fluoro Time (minutes) 4.0 End Study - Sheaths Sheaths Pulled By Sheath Hold Time (min) Maikel Raymond End Study - Patient Disposition Complications Transferred To Interventional Outcome No Telemetry Bed No attempt made
[2017-08-17] MEDS ORDERED: VENTAER INH (15:40)
--- NOTE | 2017-08-17 15:40 | HHI.DCPOC ---
Discharge Care Plan Diagnosis: (1) Chest pain (2) Atrial fibrillation (3) COPD (chronic obstructive pulmonary disease) Goals to Promote Your Health * To prevent worsening of your condition and complications * To maintain your health at the optimal level Directions to Meet Your Goals Take your medications as prescribed Follow your dietary instruction Follow activity as directed Keep your appointments as scheduled Take your immunizations and boosters as scheduled If your symptoms worsen call your PCP, if no PCP go to Urgent Care Center or Emergency Room Smoking is Dangerous to Your Health. Avoid second hand smoke Call the 24-hour hour crisis hotline for domestic abuse at Doris Ferrari PA-C August 17, 2017 3:40 pm
--- NOTE | 2017-08-17 15:42 | HHI.DS ---
cc: Marcos Hanna MD Discharge Summary Admission Date August 15, 2017 at 1:44 pm Discharge Date: August 17, 2017 Admitting Diagnosis chest pain (1) Chest pain ICD Code: R07.9 - Chest pain, unspecified Diagnosis: Principal (2) Atrial fibrillation ICD Code: I48.91 - Unspecified atrial fibrillation Diagnosis: Secondary Procedures 08/[address] Hanna CONCLUSION: 1. Angiographically mild two vessel coronary disease in a left dominant system, as detailed above. 2. Normal left ventricular systolic function, ejection fraction 60%. 3. Unable to image the right coronary artery, either selectively or nonselectively with a 4-Micronesian JR4, 3DRC and AL2 catheter. However, he has a left dominant system. RECOMMENDATIONS: Recommend medical management of coronary artery disease, cardiac risk factor modification. Brief History - From Admission 72-year-old male with history of chest pain that began on July 03 following COPD exacerbation induced by bronchitis. He states that the hypoxic episode of that time induced onset of atrial fibrillation and that the atrial fibrillation has caused him chest pain on and off for the past 1-1/2 months. He describes the the sensation as more discomfort and pain, involving left arm tingling, associated with dyspnea, lasting 5-25 seconds per episode. He denies any nausea vomiting, denies diaphoresis. His family history includes 2 grandfathers who both had coronary artery disease. He has known to Dr. Hanna as an outpatient. CBC/BMP: 08/15/17 1215 08/15/17 1215 Significant Findings Laboratory Tests Test 08/15/17 12:15 08/15/17 18:45 08/16/17 00:52 Red Blood Count 4.12 MIL/MM3 (4.50-5.90) Hematocrit 38.3 % (39.0-51.0) Monocytes (%) (Auto) 16.3 % (0.0-8.0) Estimat Glomerular Filtration Rate 82 ML/MIN (>89) Troponin I LESS THAN 0.02 NG/ML LESS THAN 0.02 NG/ML LESS THAN 0.02 NG/ML Imaging Last Impressions Chest X-Ray 08/15/17 1206 Signed Impressions: Service Date/Time: Tuesday, August 15, 2017 12:33 - CONCLUSION: No acute disease. Maik Cheung MD Carotid Artery Ultrasound 08/15/17 0000 Signed Impressions: Service Date/Time: Tuesday, August 15, 2017 20:31 - CONCLUSION: No hemodynamically significant stenosis in either carotid artery. Ney Allen MD PE at Discharge GENERAL: Well-nourished, well-developed pleasant male patient in NAD. SKIN: Warm and dry. No rash. HEENT: Normocephalic. Atraumatic. Pupils equal and round. Mucous membranes pink and moist. CARDIOVASCULAR: Regular rate and rhythm. No murmur appreciated. RESPIRATORY: No accessory muscle use. Mild end expiratory wheezing at the bases , otherwise clear to auscultation. Breath sounds equal bilaterally. GASTROINTESTINAL: Abdomen soft, non-tender, nondistended. Normoactive bowel sounds x4. MUSCULOSKELETAL: No obvious deformities. Extremities without clubbing, cyanosis , or edema. NEUROLOGICAL: Awake and alert. No obvious cranial nerve deficits. Motor grossly within normal limits. Normal speech. PSYCHIATRIC: Anxious mood; insight and judgment normal. Hospital Course 72-year-old male with history of chest pain, COPD, HLD, osteoarthritis, sciatica , cervicalgia, thoracic compression fracture 2, presents with intermittent chest pains 1.5 months Chest pain: Patient with persistent recurrent episodes of chest pain lasting less than 1 minute with associated left arm tingling and dyspnea. ACS ruled out with negative cardiac enzymes 3 and EKG without acute ischemic changes. Continue aspirin, statin, nitro, oxygen, morphine as needed. -Start on low dose BB with hold parameters. Monitor on telemetry, no acute events. Consulted cardiology, seen by Dr. Hanna, performed cardiac catheterization today 08/17, no CAD, recommended medical management, cleared for discharge. Paroxysmal atrial fibrillation: Diagnosed last June. Held patient's Xarelto for cardiac catheterization. Continued on heparin sq while in hospital. Continue patient's Cardizem CD 180 mg daily. Patient is currently in sinus rhythm. Monitor on telemetry. Restarted Xarelto after cardiac cath upon discharge. COPD: with occasional mild wheezing on exam. Does not wear oxygen at home. Continue on duo nebs twice daily. Continue patient's Symbicort and Spiriva. Given prescription for rescue inhaler at discharge. Anxiety: patient has anxiety at baseline, with acute worsening with upcoming procedure. Continued patient's valium 10mg bid prn. Given IV ativan prn for severe anxiety Pt Condition on Discharge: Stable Discharge Disposition: Discharge Home Discharge Time: <= 30 minutes Discharge Instructions DIET: Follow Instructions for: Heart Healthy Diet Activities you can perform: Regular-No Restrictions Follow up Referrals: Cardiology - 2 Weeks with Marcos Hanna MD PCP Follow-up - 2-3 Days with [facility] New Medications: Albuterol 18 GM Inh (Ventolin Hfa 18 GM Inh) 90 Mcg/Act Aer 2 PUFF INH Q4-6H PRN for SHORTNESS OF BREATH, #1 INHALER 0 Refills Continued Medications: Aspirin DR (Aspirin DR) 81 Mg Tabdr 81 MG PO DAILY for AFIB, #30 TAB 1 Refill Atorvastatin (Atorvastatin) 20 Mg Tab 40 MG PO HS for Cholesterol Management, #30 TAB 0 Refills Diazepam (Valium) 10 Mg Tab 10 MG PO BID PRN for ANXIETY, TAB 0 Refills Diltiazem CD 24 HR (Cardizem CD 24 HR) 180 Mg Caper 180 MG PO DAILY for afib for 30 Days, #30 CAP Pantoprazole (Pantoprazole) 40 Mg Tab 40 MG PO DAILY for GIPro for 30 Days, #30 TAB Rivaroxaban (Xarelto) 20 Mg Tab 20 MG PO DAILY for Blood Clot Prevention, TAB 0 Refills Tiotropium Inh (Spiriva Handihaler) 18 Mcg Cap 18 MCG INH DAILY for COPD for 30 Days, #1 CAP 1 Refill 1 capsule = 18 mcg [Budeson-Formot 160-4.5 Mcg Inh] () 60 PUFF AERO 1 PUFF INH Q12HR for COPD for 30 Days [zinc] () Unknown Dose Discontinued Medications: Diazepam (Diazepam) 10 Mg Tab 10 MG PO BID, TAB 0 Refills Doris Ferrari PA-C August 17, 2017 3:42 pm
[2017-08-17] MEDS ORDERED: SODIUM CHLORIDE 0.9% FLUSH 10 ML FLUSH IV FLUSH PRN (15:45)
[2017-08-17] MEDS ORDERED: MISC INFORMATION XX ONE (15:45)
--- NOTE | 2017-08-17 15:47 | MA ---
cc: Marcos Hanna MD DATE: 08/17/2017 DATE: 08/17/2017. PROCEDURE PERFORMED: Left heart cardiac catheterization, left ventriculography, coronary angiography. INDICATIONS FOR PROCEDURE: Unstable angina, [place] [employer] class IV angina, coronary artery disease. PROCEDURE: The patient was brought to the cardiac catheterization laboratory, prepped and draped in the usual sterile fashion. 10 mL 1% lidocaine was used to locally anesthetize the right common femoral. A 4-Puerto [place]ican sheath was placed in right common femoral, 4-[place]ican JL4 and JR4 catheters, AL2 and 3DRC catheters were used to perform left ventriculography and coronary angiography and attempted direct angiography of the right coronary artery. FINDINGS: LV pressure is 130/0-3, EF 60%. I was not able to image the right coronary artery, either selectively or nonselectively with a 4-[place]ican JR4, 3DRC or AL2 catheter. Nonselective imaging revealed no right coronary artery and a left dominant system. The left main coronary artery had no significant disease angiographically. The left circumflex vessel is a dominant vessel with mild disease in the proximal to mid-segment up to 20% angiographically. The left PDA is a 25 mm vessel with no significant disease angiographically. The first obtuse marginal vessel comes at the proximal left circumflex. It is a 2.5 mm vessel with no significant disease angiographically. There are 2 distal obtuse marginal vessels/posterolateral arteries which are 2.0 mm reference vessel diameter, tortuous with no significant disease angiographically. The left PDA has no significant disease angiographically. The LAD has no significant disease in the mid segment. First diagonal artery is a small to medium -sized vessel, reference vessel diameter 2.5 mm with mild disease in the proximal segment up to 10-20% angiographically. The mid-LAD has mild disease up to 10-20% angiographically. The LAD is non-transapical beyond the mid-segment. There is no significant disease angiographically. CONCLUSION: 1. Angiographically mild two vessel coronary disease in a left dominant system, as detailed above. 2. Normal left ventricular systolic function, ejection fraction 60%. 3. Unable to image the right coronary artery, either selectively or nonselectively with a 4-[place] Rican JR4, 3DRC and AL2 catheter. However, he has a left dominant system. RECOMMENDATIONS: Recommend medical management of coronary artery disease, cardiac risk factor modification. MD TOMÁS Isaacs/MOHINI , 03:13 PM , 03:46 PM
[2017-08-17] MEDS ORDERED: BACITRACIN OINT 0.9 GM PKT TOP ONE (16:00)
[2017-08-17] MEDS ORDERED: SODIUM CHLORIDE 0.9% FLUSH 10 ML FLUSH IV FLUSH SCH (21:00)
== END 2017-08-17 17:39 | disposition home or self-care (01) | DRG 287 ==
LOC: NEPC 11:57 → NEDA 13:44 → NEPGCP 15:32 → HCIS 08-17 14:38 → OBSVTOIN 08-17 15:37
PROVIDERS: ADMIT Hospitalist; ATTEND Hospitalist
PROC: B2151ZZ Fluoroscopy of Left Heart using Low Osmolar Contrast (ICD-10-PCS; 2017-08-17)
PROC: B2111ZZ Fluoroscopy of Multiple Coronary Arteries using Low Osmolar Contrast (ICD-10-PCS; 2017-08-17)
PROC: 4A023N7 Measurement of Cardiac Sampling and Pressure, Left Heart, Percutaneous Approach (ICD-10-PCS; principal; 2017-08-17 15:00)
DX: R07.9 Chest pain, unspecified (principal); J44.9 Chronic obstructive pulmonary disease, unspecified; I48.0 Paroxysmal atrial fibrillation; M19.90 Unspecified osteoarthritis, unspecified site; F41.9 Anxiety disorder, unspecified; F12.90 Cannabis use, unspecified, uncomplicated; F20.9 Schizophrenia, unspecified; F10.10 Alcohol abuse, uncomplicated; E78.5 Hyperlipidemia, unspecified; F17.210 Nicotine dependence, cigarettes, uncomplicated; Z88.2 Allergy status to sulfonamides; Z79.01 Long term (current) use of anticoagulants; Z79.82 Long term (current) use of aspirin; Z91.19 Patient's noncompliance with other medical treatment and regimen
CPT/HCPCS: 71046; 80048; 82550; 83735; 84484; 85025; 85610; 85730; 93005; 93458; 93880; 94150; 94640; 94664; 99152; 99153; C1769; C1893; J1644; J2060; J2250; J3010; J7120; Q9967

== ENCOUNTER 2018-03-17 21:13 | Observation (INO) ==
[2018-03-17] MEDS ORDERED: Sodium Chlor 0.9% Inj 500 ML IV.SIG ONE ×2 (21:28→23:24)
--- NOTE | 2018-03-17 21:37 | ED ---
HPI General Chief complaint: Chest Pain Stated complaint: Chest pain Time Seen by Provider: 03/17/18 21:23 Source: patient Limitations: no limitations History of Present Illness HPI narrative: The patient is a 72 year old male who presents to the [facility] emergency department with a history of chest pain and shortness of breath that he reports began on Sunday. He reports that the pain is coming and going. The patient denies any prior history of myocardial infarction, however he does report having history of atrial fibrillation and is on Xarelto for anticoagulation. The patient reports that at times the pain seems to radiate up into the left shoulder. He reports that he last had a stress test done within the last 5 years, however he reports that earlier in the year in August 2017 heart cath done that was reportedly negative for coronary artery disease. The patient reports having history of COPD. He denies smoking cigarettes, however he does smoke marijuana on a daily basis. The patient reports that he has not uses rescue inhaler, as this makes his anxiety worse. The patient reports having tingling sensations all over in his upper and lower extremities. He denies having any of his upper or lower extremities. He denies having any increased productivity to his cough. He denies having a more frequent cough. On review of systems otherwise, the patient denies having any recent fevers, neck pain, new or worsening abdominal pain, vomiting, diarrhea, urinary symptoms, or other neurologic symptoms. Related Data Home Medications Medication Instructions Recorded Confirmed atorvastatin 80 mg PO DAILY 03/17/18 03/17/18 budesonide-formoterol [Symbicort] 2 puff INHALATION BID 03/17/18 03/17/18 buspirone 10 mg PO TID 03/17/18 03/17/18 diltiazem HCl 180 mg PO DAILY 03/17/18 03/17/18 flecainide 100 mg PO DAILY 03/17/18 03/17/18 folic acid 1 mg PO DAILY 03/17/18 03/17/18 guaifenesin 400 mg PO BID PRN 03/17/18 03/17/18 pantoprazole 40 mg PO DAILY 03/17/18 03/17/18 rivaroxaban [Xarelto] 20 mg PO DAILY 03/17/18 03/17/18 tiotropium bromide [Spiriva with 1 cap INHALATION DAILY 03/17/18 03/17/18 HandiHaler] Allergies Allergy/AdvReac Type Severity Reaction Status Date / Time Sulfa (Sulfonamide Allergy Severe Rash Verified 03/17/18 21:24 Antibiotics) Review of Systems ROS: all other systems reviewed are negative [facility] Medical History Medical History A-fib (Acute) COPD (chronic obstructive pulmonary disease) (Acute) Chronic neck pain (Acute) High cholesterol (Acute) Sciatica (Acute) Thoracic compression fracture (Acute) Surgical History Surgical History History of tonsillectomy (Acute) Social History Social History Substance History: Active Abuse Second Hand Smoke Exposure: No Smoking Status: Former smoker How Often Do You Have a Drink Containing Alcohol: 2 to 4 times a month Recent Travel in [facility] within the Last 8 Weeks: No Recent Out of Country Travel within the Last 8 Weeks: No Substance Abuse Detail Marijuana: Substance Use Status: Active Route Used Substance Abuse: By Mouth and Inhalation Reason for Use: Feels Good Immunization History Tetanus Immunization: Unsure Exam Const General: cooperative, no acute distress and well developed Nutritional Appearance: well nourished Orientation: alert, awake and oriented x3 HENMT Head: normocephalic and atraumatic Nose: no nasal discharge and no epistaxis Mouth: moist mucous membranes Throat: posterior oropharynx normal and uvula midline Eyes Sclera: normal sclerae Pupils: PERRL Neck Neck: no meningeal signs, trachea midline and no JVD Resp Effort & Inspection: no use of accessory muscles Auscultation: wheezes (Soft expiratory wheezes audible anteriorly and posteriorly bilaterally.) expiratory wheezes Cardio Rate: regular rate Rhythm: regular rhythm Heart Sounds: no murmurs GI Inspection: non-distended Palpation: soft, no hepatosplenomegaly, no guarding, not rigid and nontender Auscultation: normal bowel sounds Back/Spine/Pelvis Back: no CVA tenderness Skin General: dry skin (warm) Neuro General: alert, awake, oriented x3 and other (Grossly nonfocal.) Speech: speech normal Motor: no movement abnormalities noted Extrem General: normal to inspection (2+ pulses in all 4 extremities.), no calf tenderness, no clubbing, no cyanosis and no edema Psych Mood: congruent mood Affect: normal affect Judgment: judgment good Course Initial Documented Vital Signs Temperature 98.3 F 03/17/18 21:16 Pulse Rate 78 03/17/18 21:16 Respiratory Rate 19 03/17/18 21:16 Blood Pressure 145/85 H 03/17/18 21:16 Pulse Oximetry 98 03/17/18 21:16 Last Documented Vital Signs Temperature 97.9 F 03/18/18 08:00 Pulse Rate 84 03/18/18 08:14 Respiratory Rate 17 03/18/18 08:14 Blood Pressure 132/69 03/18/18 08:00 Pulse Oximetry 98 03/18/18 08:00 Medical Decision Making MDM Narrative Medical decision making narrative: During the course of the patient's emergency department visit, the patient's history, examination, and differential diagnosis were reviewed with the patient. The patient was placed on a monitoring specialist with oximetry and frequent blood pressure monitoring. The patient had IV access obtained and blood work sent for analysis. Diagnostic evaluation was started regarding the patient's chest pain and shortness of breath. Review of the electronic medical record reveals that the patient did undergo a cardiac catheterization which showed mild coronary artery disease on August 17, 2017. The patient was initially provided a duo neb x1 was administered, nitroglycerin 1 inch to the chest wall was applied. Diagnostic evaluation was started a white count of 8.8, hemoglobin 13.8, platelets 216 with 8.7 monocytes, chemistry is remarkable for glucose of 129, sodium 135, CPK 922, normal saline IV fluids were administered. Troponin I is less than 0.02, AST 46. Chest x-ray showed no evidence of acute cardiopulmonary disease. The patient was agreeable with plan to proceed with admission to the chest pain center for rule out serial cardiac enzyme protocol followed by consideration of stress testing. At my the patient's results were discussed with the patient, including the plan of care. I explained that further testing and/ or monitoring is indicated based on the patient's history, examination, and/ or laboratory findings. Therefore, I recommended admission for additional evaluation. The patient expressed understanding and was agreeable with this plan. The patient was admitted to the hospital in stable condition and sent to a bed under the care of the [facility]. Medical Screen Exam Complete: Yes Emergency Medical Condition: Yes Medical Records Medical records reviewed: Yes I reviewed the patient's medical records. Lab Data Lab results reviewed: Yes I reviewed the patient's lab results. Result diagrams: 03/17/18 21:35 03/17/18 21:35 Lab Results 03/17/18 03/17/18 03/17/18 Range/Units 21:35 21:35 21:35 WBC 8.8 (4.0-11.0) th/mm3 RBC 4.27 L (4.50-5.90) mil/mm3 Hgb 13.8 (13.0-17.0) gm/dL Hct 40.1 (39.0-51.0) % MCV 93.7 (80.0-100.0) fL MCH 32.3 (27.0-34.0) pg MCHC 34.4 (32.0-36.0) % RDW 13.8 (11.6-17.2) % Plt Count 216 (150-450) th/mm3 MPV 7.9 (7.0-11.0) fL Neut % (Auto) 72.8 H (16.0-70.0) % Lymph % (Auto) 17.4 (9.0-44.0) % [place] % (Auto) 8.7 H (0.0-8.0) % Eos % (Auto) 0.7 (0.0-4.0) % Baso % (Auto) 0.4 (0.0-2.0) % Neut # (Auto) 6.4 (1.8-7.7) th/mm3 Lymph # (Auto) 1.5 (1.0-4.8) th/mm3 [place] # (Auto) 0.8 (0.0-0.9) th/mm3 Eos # (Auto) 0.1 (0.0-0.4) th/mm3 Baso # (Auto) 0.0 (0.0-0.2) th/mm3 WBC Differential . Differential Comment Auto diff final PT 14.7 H (9.8-11.6) sec INR 1.5 Ratio APTT 36.6 H (23.4-31.7) sec Sodium 135 L (136-145) meq/L Potassium 3.7 (3.5-5.1) meq/L Chloride 101 (98-107) meq/L Carbon Dioxide 26.5 (21.0-32.0) meq/L Anion Gap 8 (5-15) meq/L BUN 15 (7-18) mg/dL Creatinine 1.04 (0.60-1.30) mg/dL Estimated GFR 71 L (>89) mL/min Random Glucose 129 H (74-106) mg/dL Calcium 8.9 (8.5-10.1) mg/dL Magnesium 1.9 (1.5-2.5) mg/dL Total Bilirubin 0.6 (0.2-1.0) mg/dL AST 46 H (15-37) U/L ALT 34 (12-78) U/L Alkaline Phosphatase 98 (45-117) U/L Total Creatine Kinase 922 H (39-308) U/L CK-MB (CK-2) 2.4 (0.5-3.6) ng/mL CK-MB (CK-2) % 0.3 (0.0-4.0) % Troponin I Less than 0.02 L (0.02-0.05) ng/mL B-Natriuretic Peptide (0-100) pg/mL Total Protein 7.3 (6.4-8.2) g/dL Albumin 3.7 (3.4-5.0) g/dL Lipase 85 (73-393) U/L Urine Color (Yellw/Straw) Urine Clarity (Clear) Urine pH (5.0-8.5) Ur Specific [place] (1.002-1.035) Urine Protein (Neg-Trace) mg/dL Urine Glucose (UA) (Negative) mg/dL Urine Ketones (Negative) mg/dL Urine Occult Blood (Negative) Urine Nitrate (Negative) Urine Bilirubin (Negative) Urine Urobilinogen (Less than 2) mg/dL Ur Leukocyte Esterase (Negative) Urine RBC (0-3) /hpf Urine WBC (0-5) /hpf Urine Mucus (Occasional) /lpf Micro UA Comment Ur Microscopic Review Urine Culture Comments Urine Opiates Screen (Neg) Ur Barbiturates Screen (Neg) Ur Amphetamines Screen (Neg) U Benzodiazepines Scrn (Neg) Urine Cocaine Screen (Neg) U Cannabinoids Screen (Neg) Serum Alcohol Less than 3 (0-5) mg/dL 03/17/18 03/17/18 03/17/18 Range/Units 21:35 22:55 22:55 WBC (4.0-11.0) th/mm3 RBC (4.50-5.90) mil/mm3 Hgb (13.0-17.0) gm/dL Hct (39.0-51.0) % MCV (80.0-100.0) fL MCH (27.0-34.0) pg MCHC (32.0-36.0) % RDW (11.6-17.2) % Plt Count (150-450) th/mm3 MPV (7.0-11.0) fL Neut % (Auto) (16.0-70.0) % Lymph % (Auto) (9.0-44.0) % [place] % (Auto) (0.0-8.0) % Eos % (Auto) (0.0-4.0) % Baso % (Auto) (0.0-2.0) % Neut # (Auto) (1.8-7.7) th/mm3 Lymph # (Auto) (1.0-4.8) th/mm3 [place] # (Auto) (0.0-0.9) th/mm3 Eos # (Auto) (0.0-0.4) th/mm3 Baso # (Auto) (0.0-0.2) th/mm3 WBC Differential Differential Comment PT (9.8-11.6) sec INR Ratio APTT (23.4-31.7) sec Sodium (136-145) meq/L Potassium (3.5-5.1) meq/L Chloride (98-107) meq/L Carbon Dioxide (21.0-32.0) meq/L Anion Gap (5-15) meq/L BUN (7-18) mg/dL Creatinine (0.60-1.30) mg/dL Estimated GFR (>89) mL/min Random Glucose (74-106) mg/dL Calcium (8.5-10.1) mg/dL Magnesium (1.5-2.5) mg/dL Total Bilirubin (0.2-1.0) mg/dL AST (15-37) U/L ALT (12-78) U/L Alkaline Phosphatase (45-117) U/L Total Creatine Kinase (39-308) U/L CK-MB (CK-2) (0.5-3.6) ng/mL CK-MB (CK-2) % (0.0-4.0) % Troponin I (0.02-0.05) ng/mL B-Natriuretic Peptide 16 (0-100) pg/mL Total Protein (6.4-8.2) g/dL Albumin (3.4-5.0) g/dL Lipase (73-393) U/L Urine Color Straw (Yellw/Straw) Urine Clarity Clear (Clear) Urine pH 6.0 (5.0-8.5) Ur Specific [place] 1.008 (1.002-1.035) Urine Protein Negative (Neg-Trace) mg/dL Urine Glucose (UA) Negative (Negative) mg/dL Urine Ketones Negative (Negative) mg/dL Urine Occult Blood Small H (Negative) Urine Nitrate Negative (Negative) Urine Bilirubin Negative (Negative) Urine Urobilinogen Less than 2 (Less than 2) mg/dL Ur Leukocyte Esterase Negative (Negative) Urine RBC 1 (0-3) /hpf Urine WBC Less than 1 (0-5) /hpf Urine Mucus Few H (Occasional) /lpf Micro UA Comment Culture not ind Ur Microscopic Review Not Reportable Urine Culture Comments Culture not ind Urine Opiates Screen Neg (Neg) Ur Barbiturates Screen Neg (Neg) Ur Amphetamines Screen Neg (Neg) U Benzodiazepines Scrn Pos H (Neg) Urine Cocaine Screen Neg (Neg) U Cannabinoids Screen Pos H (Neg) Serum Alcohol (0-5) mg/dL 03/18/18 03/18/18 Range/Units 01:30 04:50 WBC (4.0-11.0) th/mm3 RBC (4.50-5.90) mil/mm3 Hgb (13.0-17.0) gm/dL Hct (39.0-51.0) % MCV (80.0-100.0) fL MCH (27.0-34.0) pg MCHC (32.0-36.0) % RDW (11.6-17.2) % Plt Count (150-450) th/mm3 MPV (7.0-11.0) fL Neut % (Auto) (16.0-70.0) % Lymph % (Auto) (9.0-44.0) % [place] % (Auto) (0.0-8.0) % Eos % (Auto) (0.0-4.0) % Baso % (Auto) (0.0-2.0) % Neut # (Auto) (1.8-7.7) th/mm3 Lymph # (Auto) (1.0-4.8) th/mm3 [place] # (Auto) (0.0-0.9) th/mm3 Eos # (Auto) (0.0-0.4) th/mm3 Baso # (Auto) (0.0-0.2) th/mm3 WBC Differential Differential Comment PT (9.8-11.6) sec INR Ratio APTT (23.4-31.7) sec Sodium (136-145) meq/L Potassium (3.5-5.1) meq/L Chloride (98-107) meq/L Carbon Dioxide (21.0-32.0) meq/L Anion Gap (5-15) meq/L BUN (7-18) mg/dL Creatinine (0.60-1.30) mg/dL Estimated GFR (>89) mL/min Random Glucose (74-106) mg/dL Calcium (8.5-10.1) mg/dL Magnesium (1.5-2.5) mg/dL Total Bilirubin (0.2-1.0) mg/dL AST (15-37) U/L ALT (12-78) U/L Alkaline Phosphatase (45-117) U/L Total Creatine Kinase 564 H 706 H (39-308) U/L CK-MB (CK-2) 1.7 2.0 (0.5-3.6) ng/mL CK-MB (CK-2) % 0.3 0.3 (0.0-4.0) % Troponin I Less than 0.02 L Less than 0.02 L (0.02-0.05) ng/mL B-Natriuretic Peptide (0-100) pg/mL Total Protein (6.4-8.2) g/dL Albumin (3.4-5.0) g/dL Lipase (73-393) U/L Urine Color (Yellw/Straw) Urine Clarity (Clear) Urine pH (5.0-8.5) Ur Specific [place] (1.002-1.035) Urine Protein (Neg-Trace) mg/dL Urine Glucose (UA) (Negative) mg/dL Urine Ketones (Negative) mg/dL Urine Occult Blood (Negative) Urine Nitrate (Negative) Urine Bilirubin (Negative) Urine Urobilinogen (Less than 2) mg/dL Ur Leukocyte Esterase (Negative) Urine RBC (0-3) /hpf Urine WBC (0-5) /hpf Urine Mucus (Occasional) /lpf Micro UA Comment Ur Microscopic Review Urine Culture Comments Urine Opiates Screen (Neg) Ur Barbiturates Screen (Neg) Ur Amphetamines Screen (Neg) U Benzodiazepines Scrn (Neg) Urine Cocaine Screen (Neg) U Cannabinoids Screen (Neg) Serum Alcohol (0-5) mg/dL Imaging Data Radiologist's impression: Chest X-Ray 03/17/18 21:23 CONCLUSION: 1. No acute cardiopulmonary disease. ECG Data Attestation: I personally reviewed and interpreted this ECG as follows: Interpretation: The patient had a EKG done on arrival. The patient's EKG shows a sinus rhythm heart rate of 80, QRS duration 88 ms, QTC [address] segment elevation. Discharge Plan Discharge Disposition Patient Disposition: 01 Discharge Home Discharge Condition Condition: Stable Discharge Order Discharge Orders: Discharge Order (Routine); Ordered 03/18/18 Ordered By: Daniel Levine ED Use Only Admit Order (Routine); Ordered 03/17/18 Ordered By: Magda Hamlin Discharge Details Diagnosis: Chest pain, rule out acute myocardial infarction Physicians Team ED Provider: Magda Hamlin Primary Care Provider: [facility] Attending Provider: Mak Kamara Discharge Interventions Interventions: ED Discharge Assessment Last Done: 03/18/18 01:48 Status ED Status: Left Department Discharge Information Discharge Date/Time: 03/18/18 01:48
--- NOTE | 2018-03-17 21:43 | XR ---
EXAM DATE: 03/17/2018 9:40 PM EST AGE/SEX: 72 years / Male INDICATIONS: Chest pain CLINICAL DATA: This is the patient's initial encounter. Patient reports that signs and symptoms have been present for 1 day and indicates a pain score of 6/10. MEDICAL/SURGICAL HISTORY: Chronic obstructive pulmonary disease. Carcinoma, skin cancer. None. COMPARISON: [facility] [place], CHEST PA & LAT, 08/15/2017. . FINDINGS: No significant new focal pleural or parenchymal opacities. The cardiomediastinal contours are unremar kable. Osseous structures are intact. CONCLUSION: 1. No acute cardiopulmonary disease. Electronically signed by: Heron Ken MD 03/17/2018 9:42 PM EST
[2018-03-17 22:01] LABS: Baso % (Auto) 0.4 % (0.0-2.0); Eos # (Auto) 0.1 th/mm3 (0.0-0.4); Eos % (Auto) 0.7 % (0.0-4.0); Hematocrit 40.1 % (39.0-51.0); Hemoglobin 13.8 gm/dL (13.0-17.0); Lymph # (Auto) 1.5 th/mm3 (1.0-4.8); Lymph % (Auto) 17.4 % (9.0-44.0); Mean Corpuscular HGB Conc 34.4 % (32.0-36.0); Mean Corpuscular Hemoglobin 32.3 pg (27.0-34.0); Mean Corpuscular Volume 93.7 fL (80.0-100.0); Mean Platelet Volume 7.9 fL (7.0-11.0); Mono # (Auto) 0.8 th/mm3 (0.0-0.9); Mono % (Auto) 8.7 % (0.0-8.0); Neut # (Auto) 6.4 th/mm3 (1.8-7.7); Neut % (Auto) 72.8 % (16.0-70.0); Platelet Count 216 th/mm3 (150-450); Red Blood Count 4.27 mil/mm3 (4.50-5.90); Red Cell Distribution Width 13.8 % (11.6-17.2); White Blood Count 8.8 th/mm3 (4.0-11.0)
[2018-03-17 22:12] LABS: Activated Partial Thrombo Time 36.6 sec (23.4-31.7); INR 1.5 Ratio; Prothrombin Time 14.7 sec (9.8-11.6)
[2018-03-17 22:30] LABS: Alanine Aminotransferase 34 U/L (12-78); Albumin 3.7 g/dL (3.4-5.0); Anion Gap 8 meq/L (5-15); Aspartate Aminotransferase 46 U/L (15-37); Blood Urea Nitrogen 15 mg/dL (7-18); Calcium 8.9 mg/dL (8.5-10.1); Carbon Dioxide 26.5 meq/L (21.0-32.0); Chloride 101 meq/L (98-107); Glomerular Filtration Rate 71 mL/min (>89); Glucose,Random 129 mg/dL (74-106); Lipase 85 U/L (73-393); Magnesium 1.9 mg/dL (1.5-2.5); Potassium 3.7 meq/L (3.5-5.1); Sodium 135 meq/L (136-145)
[2018-03-17 22:33] LABS: Alkaline Phosphatase 98 U/L (45-117); Creatine Kinase 922 U/L (39-308); Total Protein 7.3 g/dL (6.4-8.2)
[2018-03-17 22:48] LABS: CKMB Percent 0.3 % (0.0-4.0); Creatine Kinase MB 2.4 ng/mL (0.5-3.6)
[2018-03-17 23:13] LABS: Amphetamine Screen,Urine Neg (Neg); Barbiturate Screen,Urine Neg (Neg); Cannabinoid Screen,Urine Pos (Neg); Cocaine Screen,Urine Neg (Neg)
[2018-03-17 23:16] LABS: Bilirubin,Urine Negative (Negative); Clarity,Urine Clear (Clear); Color,Urine Straw (Yellw/Straw); Glucose,Urine (UA) Negative (Negative); Leukocyte Esterase,Urine Negative (Negative); Mucus,Urine Few /lpf (Occasional); Nitrite,Urine Negative (Negative); Specific Gravity,Urine 1.008 (1.002-1.035)
[2018-03-17 23:21] LABS: Opiate Screen,Urine Neg (Neg)
[2018-03-18] MEDS ORDERED: Acetaminophen 500 MG Tablet PO PRN (00:43)
[2018-03-18 02:39] LABS: Creatine Kinase 564 U/L (39-308)
[2018-03-18 02:51] LABS: CKMB Percent 0.3 % (0.0-4.0); Creatine Kinase MB 1.7 ng/mL (0.5-3.6)
[2018-03-18 05:36] LABS: Creatine Kinase 706 U/L (39-308)
[2018-03-18 05:48] LABS: CKMB Percent 0.3 % (0.0-4.0)
--- NOTE | 2018-03-18 08:03 | P.HPCA ---
History of Present Illness Primary Care Physician: [facility] Chief Complaint: Chest pain History of Present Illness: This is a 72-year-old male with history of A. fib with RVR that is on Xarelto and diltiazem and flecainide as well as COPD that presents to ED to evaluate for chest discomfort. Patient states "I have pain in a lot of areas. I have panic attacks. I worry about everything." When asked specifically if he was having chest pain he states that he was and that he has been having chest pain intermittently since June 2017. Nothing in particular seems to bring them on. States he can last for seconds to minutes to hours. States he had normal heart catheterization in August and upon reviewing records he did have heart catheterization August [address] Hanna that showed some mild disease. 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 Voices compliance with his medication is requesting to be able to take his heart medication that he has with him. Currently denies chest discomfort. He has past medical history of paroxysmal atrial fibrillation with RVR on Xarelto, diltiazem, and flecainide. Also history of COPD and hyperlipidemia. Denies diabetes. Quit smoking about 6 years ago. Smokes marijuana essentially daily. Cannot recall his family cardiac history. - Diagnosis (1) Chest pain (2) COPD (chronic obstructive pulmonary disease) (3) Paroxysmal atrial fibrillation (4) Hyperlipidemia Review of Systems General: Patient denies fevers, chills, and recent travel. HEENT: Patient denies headache, sore throat, difficulty swallowing. Cardiovascular: Has the chest discomfort as mentioned above. Denies sensation of heart beating rapidly or irregularly. No syncope. Respiratory: Denies shortness of breath or inspirational chest discomfort. Denies coughing wheezing or hemoptysis. GI: Patient denies nausea, vomiting, diarrhea, abdominal pain, bloody stools. Musculoskeletal: Patient denies joint pain or edema. Denies calf pain or edema. Neurovascular: Patient denies numbness, tingling, weakness in extremities. Denies headache. Endocrine: Denies polyuria and polydipsia. Hematologic: Denies easy bruising. Skin: Denies rash or itching. PMFSH - History History Provided By: Patient - Medical History Medical History: Medical History (Last Updated 03/17/18 @ 21:34 by Magda Hamlin MD) A-fib COPD (chronic obstructive pulmonary disease) High cholesterol Chronic neck pain Sciatica Thoracic compression fracture - Surgical History Surgical History: Surgical History (Last Updated 03/17/18 @ 21:34 by Magda Hamlin MD) History of tonsillectomy - Tobacco History Second Hand Smoke Exposure: No Tobacco Use In Past 30 Days: No Smoking Status: Former smoker - Alcohol History How Often Do You Have a Drink Containing Alcohol: 2 to 4 times a month - Substance Use History Substance History: Active Abuse - Substance Use Type Marijuana Status: Active Route Used: By Mouth, Inhalation Reason for Use: Feels Good - Travel History Recent Travel in the [place] Within the Last 8 Weeks: No Recent Travel Out of the Country Within the Last 8 Weeks: No - Immunization History Tetanus Immunization: Unsure Medications and Allergies Active Medications: Active Medications Acetaminophen (Tylenol) 500 mg PO Q4H PRN PRN Reason: HEADACHE Albuterol (Duoneb Neb (Prn)) 1 ampul NEB Q4HR NEB PRN PRN Reason: SHORTNESS OF BREATH/WHEEZING Famotidine (Pepcid) 20 mg PO BID PAUL Sodium Chloride (Ns Flush) 2 ml IV.FLUSH UNSCH PRN PRN Reason: FLUSH AFTER USING IV ACCESS Sodium Chloride (Ns Flush) 2 ml IV.FLUSH BID PAUL Sodium Chloride (Ns Flush) 2 ml IV.FLUSH PRN PRN PRN Reason: FLUSH AFTER USING IV ACCESS Allergies Allergy/AdvReac Type Severity Reaction Status Date / Time Sulfa (Sulfonamide Allergy Severe Rash Verified 03/17/18 21:24 Antibiotics) Home Medications Medication Instructions Recorded Confirmed Type No Known Home Medications 03/17/18 03/17/18 History atorvastatin 80 mg PO DAILY 03/17/18 03/17/18 History budesonide-formoterol [Symbicort] 2 puff INHALATION BID 03/17/18 03/17/18 History buspirone 10 mg PO TID 03/17/18 03/17/18 History diltiazem HCl 180 mg PO DAILY 03/17/18 03/17/18 History flecainide 100 mg PO DAILY 03/17/18 03/17/18 History folic acid 1 mg PO DAILY 03/17/18 03/17/18 History guaifenesin 400 mg PO BID PRN 03/17/18 03/17/18 History pantoprazole 40 mg PO DAILY 03/17/18 03/17/18 History rivaroxaban [Xarelto] 20 mg PO DAILY 03/17/18 03/17/18 History tiotropium bromide [Spiriva with 1 cap INHALATION DAILY 03/17/18 03/17/18 History HandiHaler] Exam Vital signs: Vital Signs 03/17/18 21:16 03/17/18 21:31 03/17/18 21:32 Temperature 98.3 F Pulse Rate 78 79 Respiratory Rate 19 Blood Pressure 145/85 H Pulse Oximetry 98 97 03/17/18 22:20 03/17/18 23:36 03/18/18 01:31 Temperature Pulse Rate 72 76 79 Respiratory Rate 19 18 20 Blood Pressure 159/75 H 168/78 H Pulse Oximetry 97 98 03/18/18 04:00 03/18/18 04:05 Temperature 98.8 F Pulse Rate 76 94 H Respiratory Rate 16 Blood Pressure 124/65 Pulse Oximetry 94 L Intake & Output 03/17/18 03/18/18 03/18/18 18:59 06:59 18:59 Intake Total 1000 / 1000 Balance 1000 / 1000 Weight 115.991 kg Intake: IV 1000 / 1000 NS Inj 500 ML @ Wide Open IV. 500 / 500 SIG BOLUS ONE Rx#:[id number] Oral 0 / 0 Other: # Voids 2 Date of Last Bowel Movement 03/17/18 Narrative: GENERAL: This is a well-nourished, well-developed patient, in no apparent distress. Patient speaks in clear complete sentences. Patient is pleasant. HEENT: Head is atraumatic and normocephalic. Neck is supple without lymphadenopathy and trachea is midline. No JVD or carotid bruits. CARDIOVASCULAR: Regular rate and rhythm without murmurs, gallops, or rubs. RESPIRATORY: Bilateral expiratory wheezing. Breath sounds equal bilaterally. No rales or rhonchi. Chest wall is nontender. No use of accessory muscles. GASTROINTESTINAL: Abdomen is nontender, nondistended. Abdomen soft. No obvious pulsatile mass or bruit. No CVA tenderness. Strong femoral pulses bilaterally. Normal bowel sounds in all quadrants. MUSCULOSKELETAL: Patient is moving upper and lower extremities freely. No calf tenderness or edema, no Homans sign. Strong pulses in upper and lower extremities. NEUROLOGICAL: Patient is alert and oriented. Cranial nerves 2-12 are grossly intact. No focal deficits and speech is clear. SKIN: No rash and turgor is normal. Results 03/17/18 21:35 03/17/18 21:35 Cardiac Enzymes 03/17/18 03/17/18 03/18/18 Range/Units 21:35 21:35 01:30 AST 46 H (15-37) U/L CK-MB (CK-2) 2.4 1.7 (0.5-3.6) ng/mL Troponin I Less than 0.02 L Less than 0.02 L (0.02-0.05) ng/mL B-Natriuretic Peptide 16 (0-100) pg/mL 03/18/18 Range/Units 04:50 AST (15-37) U/L CK-MB (CK-2) 2.0 (0.5-3.6) ng/mL Troponin I Less than 0.02 L (0.02-0.05) ng/mL B-Natriuretic Peptide (0-100) pg/mL Coagulation 18 03/17/18 Range/Units 21:35 21:35 PT 14.7 H (9.8-11.6) sec APTT 36.6 H (23.4-31.7) sec B-Natriuretic Peptide 16 (0-100) pg/mL CBC 03/17/18 Range/Units 21:35 WBC 8.8 (4.0-11.0) th/mm3 RBC 4.27 L (4.50-5.90) mil/mm3 Hgb 13.8 (13.0-17.0) gm/dL Hct 40.1 (39.0-51.0) % Plt Count 216 (150-450) th/mm3 Neut # (Auto) 6.4 (1.8-7.7) th/mm3 Lymph # (Auto) 1.5 (1.0-4.8) th/mm3 [place] # (Auto) 0.8 (0.0-0.9) th/mm3 Eos # (Auto) 0.1 (0.0-0.4) th/mm3 Baso # (Auto) 0.0 (0.0-0.2) th/mm3 Comprehensive Metabolic Panel 03/17/18 Range/Units 21:35 Sodium 135 L (136-145) meq/L Potassium 3.7 (3.5-5.1) meq/L Chloride 101 (98-107) meq/L Carbon Dioxide 26.5 (21.0-32.0) meq/L BUN 15 (7-18) mg/dL Creatinine 1.04 (0.60-1.30) mg/dL Calcium 8.9 (8.5-10.1) mg/dL AST 46 H (15-37) U/L ALT 34 (12-78) U/L Alkaline Phosphatase 98 (45-117) U/L Total Protein 7.3 (6.4-8.2) g/dL Albumin 3.7 (3.4-5.0) g/dL Intake and Output 03/17/18 03/18/18 03/18/18 22:59 06:59 14:59 Intake Total 1000 / 1000 Balance 1000 / 1000 Intake: IV 1000 / 1000 NS Inj 500 ML @ Wide Open IV. 500 / 500 SIG BOLUS ONE Rx#:[id number] Oral 0 / 0 Other: # Voids 2 Date of Last Bowel Movement 03/17/18 Weight 115.991 kg - Imaging and Cardiology Imaging: Impressions Chest X-Ray 03/17/18 21:23 CONCLUSION: 1. No acute cardiopulmonary disease. EKG interpretations - EKG EKG shows: sinus rhythm (EKG is a sinus rhythm without significant ST segment depressions or elevations.) Caprini VTE Risk Assessment Caprini VTE Risk Assessment: Moderate/High Risk (score >= 2) Caprini Risk Assessment Model: Point Value = 1 Point Value = 2 Point Value = 3 Point Value = 5 Age 41-60 Minor surgery BMI > 25 kg/m2 Swollen legs Varicose veins or History of unexplained or recurrent spontaneous Oral contraceptives or hormone replacement Sepsis (< 1 month) Serious lung disease, including pneumonia (< 1 month) Abnormal pulmonary function Acute myocardial infarction Congestive heart failure (< 1 month) History of inflammatory bowel disease Medical patient at bed rest Age 61-74 Arthroscopic surgery Major open surgery (> 45 min) Laparoscopic surgery (> 45 min) Malignancy Confined to bed (> 72 hours) Immobilizing plaster cast Central venous access Age >= 75 History of VTE Family history of VTE Factor V Leiden Prothrombin 13187H Lupus anticoagulant Anticardiolipin antibodies Elevated serum homocysteine Heparin-induced thrombocytopenia Other congenital or acquired thrombophilia Stroke (< 1 month) Elective arthroplasty Hip, pelvis, or leg fracture Acute spinal cord injury (< 1 month) Prophylaxis Regimen: Total Risk Factor Score Risk Level Prophylaxis Regimen 0-1 Low Early ambulation 2 Moderate Order ONE of the following: *Sequential Compression Device (SCD) *Heparin 5000 units SQ BID 3-4 Higher Order ONE of the following medications: *Heparin 5000 units SQ TID *Enoxaparin/Lovenox 40 mg SQ daily (WT < 150 kg, CrCl > 30 mL/min) *Enoxaparin/Lovenox 30 mg SQ daily (WT < 150 kg, CrCl > 10-29 mL/min) *Enoxaparin/Lovenox 30 mg SQ BID (WT < 150 kg, CrCl > 30 mL/min) AND/OR *Sequential Compression Device (SCD) 5 or more Highest Order ONE of the following medications: *Heparin 5000 units SQ TID (Preferred with Epidurals) *Enoxaparin/Lovenox 40 mg SQ daily (WT < 150 kg, CrCl > 30 mL/min) *Enoxaparin/Lovenox 30 mg SQ daily (WT < 150 kg, CrCl > 10-29 mL/min) *Enoxaparin/Lovenox 30 mg SQ BID (WT < 150 kg, CrCl > 30 mL/min) AND *Sequential Compression Device (SCD) Assessment and Plan - Assessment (1) Chest pain Code(s): R07.9 - Chest pain, unspecified Status: Acute (2) COPD (chronic obstructive pulmonary disease) Code(s): J44.9 - Chronic obstructive pulmonary disease, unspecified Status: Acute (3) Paroxysmal atrial fibrillation Code(s): I48.0 - Paroxysmal atrial fibrillation Status: Acute (4) Hyperlipidemia Code(s): E78.5 - Hyperlipidemia, unspecified Status: Acute - Plan * Chest pain: Patient has been seen by Dr. Mauricio Trinidad of the cardiology [facility] chest pain center. He had serial cardiac enzymes ruling out purposes. His heart catheterization from August of this year was reviewed by Dr. Mauricio Espinoza and is essentially normal. At this time will be discharged home with instructions to follow-up with his PCP. Resume his medication. Return to ED for interval issues. * COPD: Patient was wheezing. He will be given a DuoNeb. He will be discharged home with instructions to resume his medication follow-up with PCP. * Paroxysmal atrial fibrillation: Continue his medication. 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 * Hyperlipidemia: Continue medication. Patient is stable at this time. He is agreeable to this plan. H&P: Quality - VTE Deep Vein Thrombosis/Pulmonary Embolism Present on Admission: No
[2018-03-18 08:15] VITALS: PULSE 84; RESP 17
[2018-03-18 08:41] VITALS: BP 132/69; TEMP 97.9
[2018-03-18 08:54] VITALS: O2SAT 98
[2018-03-18] MEDS ORDERED: Famotidine 20 MG Tablet PO SCH (09:00)
--- NOTE | 2018-03-18 15:45 | ECG ---
Date Performed: 03/18/2018 Time Performed: 04:42:53 PTAGE: 72 years EKG: Sinus rhythm WITH SINUS ARRHYTHMIA NORMAL ECG PREVIOUS TRACING : 03/18/2018 02.07 Since previous tracing, no significant change noted DOCTOR: Mauricio Espinoza Interpretating Date/Time 03/18/2018 15:45:01
--- NOTE | 2018-03-18 15:45 | ECG ---
Date Performed: 03/18/2018 Time Performed: 02:07:43 PTAGE: 72 years EKG: Sinus rhythm NORMAL ECG PREVIOUS TRACING : 03/17/2018 21.19 Since previous tracing, no significant change noted DOCTOR: Mauricio Espinoza Interpretating Date/Time 03/18/2018 15:45:18
--- NOTE | 2018-03-18 15:46 | ECG ---
Date Performed: 03/17/2018 Time Performed: 21:19:28 PTAGE: 72 years EKG: Sinus rhythm NORMAL ECG PREVIOUS TRACING : 08/15/2017 23.32 Since previous tracing, no significant change noted DOCTOR: Mauricio Espinoza Interpretating Date/Time 03/18/2018 15:45:39
== END 2018-03-18 09:36 | disposition home or self-care (01) ==
LOC: NEPC 21:13 → NEDA 21:13 → NEPHCDU 03-18 01:39
PROVIDERS: ADMIT Internal Medicine Interventional Cardiology; ATTEND Internal Medicine Interventional Cardiology